=== PATIENT | female | born 1985 | race Caucasian/White ===

== ENCOUNTER 2020-03-19 12:39 | Emergency (ER) | payer BC, SELFPAY ==
[2020-03-19 12:46] VITALS: BP 145/98; PULSE 81; RESP 14; TEMP 36.7; O2SAT 100
--- NOTE | 2020-03-19 13:18 | ED.URI ---
HPI - URI/Sore Throat General Chief Complaint: Upper Respiratory Infection Stated Complaint: sore throat Time Seen by Provider: 03/19/20 12:59 Source: patient and RN notes reviewed Mode of arrival: ambulatory Limitations: no limitations History of Present Illness HPI Narrative: Patient presents today complaining of a sore throat since this morning and states she feels that her throat is swollen. Denies cough, ear pain, headache, fever, congestion or rhinorrhea, shortness of breath, or difficulty swallowing. Currently rates her pain 3/10 and has tried no [id number] interventions prior to arrival. MD elicited complaint: sore throat Related Data Home Medications Medication Instructions Recorded Confirmed buspirone 10 mg PO DAILY 03/19/20 03/19/20 gabapentin 300 mg PO TID 03/19/20 03/19/20 glatiramer 40 mg SUBCUT EVERY OTHER DAY 03/19/20 03/19/20 hydrochlorothiazide 12.5 mg PO DAILY 03/19/20 03/19/20 omeprazole 40 mg PO DAILY 03/19/20 03/19/20 venlafaxine 75 mg PO DAILY 03/19/20 03/19/20 Allergies Allergy/AdvReac Type Severity Reaction Status Date / Time cyclobenzaprine Allergy Severe AIRWAY Verified 03/19/20 12:59 CLOSES OFF Review of Systems Review of Systems: Narrative: CONSTITUTIONAL: Denies body aches, fever, chills, or sweats. EYES: Denies visual changes, redness, or discharge. ENT: Denies rhinorrhea, congestion, or otalgia. +Sore throat CARDIOVASCULAR: Denies chest pain, palpitations, or edema. RESPIRATORY: Denies cough or dyspnea. GASTROINTESTINAL: Denies abdominal pain, nausea, vomiting, or diarrhea. GENITOURINARY: Denies dysuria or hematuria. SKIN: Denies rash, itching, or wounds. MUSCULOSKELETAL: Denies back pain, joint pain, or myalgia. NEUROLOGIC: Denies headache, numbness, tingling, or weakness. PSYCH: Denies depression or anxiety. PMFSH Comments At time of signature, I have reviewed and agree with nursing past medical, surgical, social and family history unless otherwise noted. Please see nursing chart for further information. There is no relevant family history pertinent to the presenting complaint Exam Narrative: Exam Narrative: GENERAL: Well-appearing, well-nourished, and in no acute distress. HEAD: Normocephalic, atraumatic. EYES: EOMI. No redness or drainage. Conjunctivae normal. ENT: Mucous membranes pink and moist. Nares clear. No rhinorrhea. TMs normal bilaterally. Throat normal. Uvula midline. NECK: Normal AROM. Supple. No lymphadenopathy. CHEST: No respiratory distress. Clear to auscultation. HEART: Regular rate and rhythm. No murmur appreciated. Normal peripheral pulses. EXTREMITIES: Normal range of motion. No edema. SKIN: Warm, dry, no rash. Capillary refill normal. Normal skin turgor. NEURO: No focal deficits. Alert and oriented x3. Gait steady. PSYCH: Normal affect. No signs of depression or anxiety. Course Vital Signs Vital signs: Vital Signs Temperature 98.1 F 03/19/20 12:46 Pulse Rate 81 03/19/20 12:46 Respiratory Rate 14 03/19/20 12:46 Blood Pressure 145/98 H 03/19/20 12:46 Pulse Oximetry 100 03/19/20 12:46 Temperature 98.1 F 03/19/20 12:46 Pulse Rate 81 03/19/20 12:46 Respiratory Rate 14 03/19/20 12:46 Blood Pressure 145/98 H 03/19/20 12:46 Pulse Oximetry 100 03/19/20 12:46 Reviewed. Pt has been instructed to follow up with her PCP regarding her elevated blood pressure today. MDM - URI/Sore Throat Differential Diagnosis Differential diagnosis: Likely upper respiratory infection, viral infection, pharyngitis and other (Strep throat) Lab Data Attestation: I reviewed the patient's lab results. Labs: Strep Screen Presumptive Negative *(Reference Range: Negative)* Critical Care Time Critical Care Time Critical Care Time: No Discharge Plan Discharge Clinical Impression: Acute sore throat Patient Disposition: Home, Self-Care Condition: Stable Instructions: Strep Throat in C
== END 2020-03-19 13:24 | disposition home or self-care (01) ==
PROVIDERS: Emergency Provider Nurse Practitioner; PCP Nurse Practitioner Family
DX: J02.9 Acute pharyngitis, unspecified (principal); G35 Multiple sclerosis; I10 Essential (primary) hypertension; K21.9 Gastro-esophageal reflux disease without esophagitis; F41.9 Anxiety disorder, unspecified; F32.9 Major depressive disorder, single episode, unspecified
CPT/HCPCS: 87081; 87880; 99203; G0463

== ENCOUNTER 2022-01-23 09:53 | Emergency (ER) | payer BC, SELFPAY ==
[2022-01-23 09:58] VITALS: BP 140/86; PULSE 72; RESP 18; TEMP 36.5; O2SAT 100
--- NOTE | 2022-01-23 10:03 | ED.URI ---
HPI - URI/Sore Throat General Chief Complaint: Upper Respiratory Infection Stated Complaint: Drainage, stuffy, ear pain Time Seen by Provider: 01/23/22 10:00 Source: patient and RN notes reviewed History of Present Illness HPI Narrative: Patient is a 36-year-old female who presents the urgent care with complaints of nasal congestion, left ear pain, drainage and productive cough. Patient states that started last and she feels very fatigued and drained. Patient has a history of MS and is switching her medications and therefore has a decreased immune system until her new infusion starts at the end of this month. Patient states she has been using Zyrtec and Mucinex. 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 Patient denies any fever, nausea or vomiting. No other acute complaints. No acute distress noted. Patient aware of the plan of care. Some parts of this dictation were generated by voice recognition software and may contain typographical and/or grammatical inaccuracies. Related Data Home Medications Medication Instructions Recorded Confirmed buspirone 10 mg tablet 10 mg PO DAILY 03/19/20 01/23/22 gabapentin 300 mg capsule 300 mg PO TID 03/19/20 01/23/22 glatiramer 40 mg/mL subcutaneous 40 mg subcut EVERY OTHER DAY 03/19/20 01/23/22 syringe hydrochlorothiazide 12.5 mg tablet 12.5 mg PO DAILY 03/19/20 01/23/22 omeprazole 40 mg capsule,delayed 40 mg PO DAILY 03/19/20 01/23/22 release venlafaxine 75 mg tablet,extended 75 mg PO DAILY 03/19/20 01/23/22 release 24 hr ropinirole 1 mg tablet 1 mg DAILY 01/23/22 01/23/22 Allergies Allergy/AdvReac Type Severity Reaction Status Date / Time cyclobenzaprine Allergy Severe AIRWAY Verified 01/23/22 10:06 CLOSES OFF Review of Systems Review of Systems: CONSTITUTIONAL: Denies fever, chills, or sweats. EYES: Denies visual changes, redness, or discharge. ENT: Reports of postnasal drainage, sinus congestion, rhinorrhea and left otalgia CARDIOVASCULAR: Denies chest pain, palpitations, or edema. RESPIRATORY: Reports a productive cough without dyspnea GASTROINTESTINAL: Denies abdominal pain, nausea, vomiting, or diarrhea. GENITOURINARY: Denies dysuria or hematuria. SKIN: Denies rash or itching. MUSCULOSKELETAL: Denies back pain, joint pain, or myalgia. NEUROLOGIC: Denies headache, numbness, or weakness. All other systems reviewed are negative, except as documented in HPI. PMFSH Comments At the time of my signature, I reviewed and agree with the nursing past medical, surgical, social, and family history. There is no relevant family history pertinent to the patient complaint. Exam Narrative: GENERAL: This is a well-nourished, well-developed patient, in no apparent distress. HEAD: normocephalic, atraumatic. EYES: PERRL. Sclera clear/white. Moderate injected bilateral conjunctiva with clear drainage vision is grossly intact. EARS: External ears normal, auditory canals clear and without drainage, mild bilateral station tube dysfunction, TMs normal without perforation. Hearing grossly intact. NOSE: External nose normal with no obvious nasal discharge, bilateral erythemic nares with mild edema and clear yellow rhinorrhea THROAT: Mucous membranes moist, mild erythema noted posterior pharynx with moderate postnasal drainage NECK: Neck supple, non-tender without lymphadenopathy CARDIOVASCULAR: Regular rate and rhythm without murmurs, gallops, or rubs. RESPIRATORY: Clear to auscultation. Breath sounds equal bilaterally. No wheezes, rales, or rhonchi. SKIN: warm, intact with no suspicious lesions or rash, good texture and turgor. NEURO: awake, alert, and oriented to person, place and time. There were no obvious focal neurologic abnormalities. EXTREMITIES: No clubbing, cyanosis, or edema. Course Course Level of Care: Express Care Visit Vital Signs Vital signs: Vital Signs Temperature 97.7 F 01/23/22 09:58 Pulse Rate 72 0
== END 2022-01-23 10:18 | disposition home or self-care (01) ==
PROVIDERS: Emergency Provider Nurse Practitioner Family; PCP Nurse Practitioner Family
DX: J32.9 Chronic sinusitis, unspecified (principal); G35 Multiple sclerosis; I10 Essential (primary) hypertension; K21.9 Gastro-esophageal reflux disease without esophagitis; F41.9 Anxiety disorder, unspecified; F32.A Depression, unspecified; Z85.828 Personal history of other malignant neoplasm of skin
CPT/HCPCS: 99213; G0463

== ENCOUNTER 2023-04-27 16:27 | Emergency (ER) | payer BC, SELFPAY ==
[2023-04-27 16:32] VITALS: BP 160/90; PULSE 78; RESP 18; TEMP 36.6; O2SAT 99
--- NOTE | 2023-04-27 16:52 | ED.EYEPROB ---
HPI - Eye Problem General Chief complaint: Eye Problems Stated complaint: Eye Problem Time Seen by Provider: 04/27/23 16:35 Source: patient Mode of arrival: ambulatory Limitations: no limitations History of Present Illness HPI Narrative: 37 yo F presents with c/o redness, drainage, itching to L eye. Does wear contacts but took them out when symptoms started. No vision change. All systems reviewed and negative except as noted above. Related Data Home Medications Medication Instructions Recorded Confirmed buspirone 10 mg tablet 10 mg PO DAILY 03/19/20 04/27/23 gabapentin 300 mg capsule 300 mg PO TID 03/19/20 04/27/23 glatiramer 40 mg/mL subcutaneous 40 mg subcut EVERY OTHER DAY 03/19/20 04/27/23 syringe hydrochlorothiazide 12.5 mg tablet 12.5 mg PO DAILY 03/19/20 04/27/23 omeprazole 40 mg capsule,delayed 40 mg PO DAILY 03/19/20 04/27/23 release venlafaxine 75 mg tablet,extended 75 mg PO DAILY 03/19/20 04/27/23 release 24 hr ropinirole 1 mg tablet 1 mg PO DAILY 01/23/22 04/27/23 tizanidine 4 mg tablet 4 mg PO QID PRN Muscle Spasm 04/27/23 04/27/23 Allergies Allergy/AdvReac Type Severity Reaction Status Date / Time cyclobenzaprine Allergy Severe AIRWAY Verified 01/23/22 10:06 CLOSES OFF Review of Systems Review of Systems: CONSTITUTIONAL: Denies fever, chills, or sweats. EYES: Denies visual changes. Reports redness, discharge, itching left eye. ENT: Denies rhinorrhea, congestion, sore throat, or otalgia. CARDIOVASCULAR: Denies chest pain, palpitations, or edema. RESPIRATORY: Denies cough or dyspnea. GASTROINTESTINAL: Denies abdominal pain, nausea, vomiting, or diarrhea. GENITOURINARY: Denies dysuria or hematuria. SKIN: Denies rash or itching. MUSCULOSKELETAL: Denies back pain, joint pain, or myalgia. NEUROLOGIC: Denies headache, numbness, or weakness. PSYCHIATRIC: Denies anxiety or depression. All other systems reviewed are negative, except as documented in HPI. [facility] Comments At time of signature, agree with nursing past medical, surgical, social and family history. There is no relevant family history pertinent to the presenting complaint. Exam Narrative: GENERAL: This is a well-nourished, well-developed patient, in no apparent distress. HEAD: normocephalic, atraumatic. EYES: PERRL. Sclera and conjunctiva erythematous to left eye. Purulent drainage from left eye. Right eye is normal. Vision is grossly intact. EARS: External ears normal NOSE: External nose normal NECK: Neck supple, non-tender without lymphadenopathy, masses or thyromegaly. CARDIOVASCULAR: Regular rate and rhythm without murmurs, gallops, or rubs. RESPIRATORY: Clear to auscultation. Breath sounds equal bilaterally. No wheezes, rales, or rhonchi. SKIN: warm, Dry, intact with no suspicious lesions or rash, good texture and turgor. NEURO: awake, alert, and oriented to person, place and time. There were no obvious focal neurologic abnormalities. EXTREMITIES: No joint tenderness, effusion, or edema noted. Course Course Level of Care: Express Care Visit Vital Signs Vital signs: Vital Signs Temperature 36.6 C 04/27/23 16:32 Pulse Rate 78 04/27/23 16:32 Respiratory Rate 18 04/27/23 16:32 Blood Pressure 160/90 H 04/27/23 16:32 Pulse Oximetry 99 04/27/23 16:32 Oxygen Delivery Room Air 04/27/23 16:32 Temperature 36.6 C 04/27/23 16:32 Pulse Rate 78 04/27/23 16:32 Respiratory Rate 18 04/27/23 16:32 Blood Pressure 160/90 H 04/27/23 16:32 Pulse Oximetry 99 04/27/23 16:32 Oxygen Delivery Room Air 04/27/23 16:32 Reviewed MDM - Eye Problem MDM Narrative Medical decision making narrative: Patient is aware of diagnosis, understands and agrees to treatment plan. Anticipatory guidance given. Patient agrees to follow-up as directed and is aware of reasons to seek care at the emergency department. Portions of this record may have been created with voice recognition software D
== END 2023-04-27 16:53 | disposition home or self-care (01) ==
PROVIDERS: Emergency Provider Nurse Practitioner Family; PCP Nurse Practitioner Family
DX: H10.32 Unspecified acute conjunctivitis, left eye (principal); I10 Essential (primary) hypertension; G35 Multiple sclerosis; K21.9 Gastro-esophageal reflux disease without esophagitis; F41.9 Anxiety disorder, unspecified; F32.A Depression, unspecified; Z85.828 Personal history of other malignant neoplasm of skin
CPT/HCPCS: 99213; G0463

== ENCOUNTER 2024-01-04 11:35 | Emergency (ER) | payer BC, SELFPAY ==
--- NOTE | 2024-01-04 11:46 | ED.URI ---
HPI - URI/Sore Throat General Chief Complaint: Upper Respiratory Infection Stated Complaint: Left Ear Pain/Sore Throat/Sinus Pressure Time Seen by Provider: 01/04/24 11:46 Source: patient Mode of arrival: ambulatory Limitations: no limitations History of Present Illness HPI Narrative: 38-year-old female presents with complaint of nasal congestion, postnasal drainage, left ear pain, fatigue for 3-4 days. Taking [id number] Zyrtec with no relief of symptoms. Afebrile. All systems reviewed and negative except as noted above. Related Data Home Medications Medication Instructions Recorded Confirmed buspirone 10 mg tablet 10 mg PO DAILY 03/19/20 04/27/23 gabapentin 300 mg capsule 300 mg PO TID 03/19/20 04/27/23 glatiramer 40 mg/mL subcutaneous 40 mg subcut EVERY OTHER DAY 03/19/20 04/27/23 syringe hydrochlorothiazide 12.5 mg tablet 12.5 mg PO DAILY 03/19/20 04/27/23 omeprazole 40 mg capsule,delayed 40 mg PO DAILY 03/19/20 04/27/23 release venlafaxine 75 mg tablet,extended 75 mg PO DAILY 03/19/20 04/27/23 release 24 hr ropinirole 1 mg tablet 1 mg PO DAILY 01/23/22 04/27/23 tizanidine 4 mg tablet 4 mg PO QID PRN Muscle Spasm 04/27/23 04/27/23 trazodone 50 mg tablet mg 01/04/24 Allergies Allergy/AdvReac Type Severity Reaction Status Date / Time cyclobenzaprine Allergy Severe AIRWAY Verified 01/23/22 10:06 CLOSES OFF Review of Systems Review of Systems: CONSTITUTIONAL: Denies fever, chills, or sweats. Reports fatigue. EYES: Denies visual changes, redness, or discharge. ENT: Reports rhinorrhea, congestion, sore throat, left ear pain CARDIOVASCULAR: Denies chest pain, palpitations, or edema. RESPIRATORY: Denies cough or dyspnea. GASTROINTESTINAL: Denies abdominal pain, nausea, vomiting, or diarrhea. GENITOURINARY: Denies dysuria or hematuria. SKIN: Denies rash or itching. MUSCULOSKELETAL: Denies back pain, joint pain, or myalgia. NEUROLOGIC: Denies headache, numbness, or weakness. PSYCHIATRIC: Denies anxiety or depression. All other systems reviewed are negative, except as documented in HPI. PMFSH Comments At time of signature, agree with nursing past medical, surgical, social and family history. There is no relevant family history pertinent to the presenting complaint. Exam Narrative: GENERAL: This is a well-nourished, well-developed patient, in no apparent distress. HEAD: normocephalic, atraumatic. EYES: PERRL. Sclera clear/white. Vision is grossly intact. EARS: External ears normal, auditory canals clear and without drainage, fluid bilateral TMs with erythema without perforation bilaterally. Hearing grossly intact. NOSE: External nose normal moderate congestion, clear nasal drainage, erythema and swelling to bilateral nares. THROAT: Mucous membranes moist, erythema postnasal drainage NECK: Neck supple, non-tender without lymphadenopathy, masses or thyromegaly. CARDIOVASCULAR: Regular rate and rhythm without murmurs, gallops, or rubs. RESPIRATORY: Clear to auscultation. Breath sounds equal bilaterally. No wheezes, rales, or rhonchi. SKIN: warm, Dry, intact with no suspicious lesions or rash, good texture and turgor. NEURO: awake, alert, and oriented to person, place and time. There were no obvious focal neurologic abnormalities. EXTREMITIES: No joint tenderness, effusion, or edema noted. Course Course Level of Care: Express Care Visit Vital Signs Vital signs: Vital Signs Temperature 36.3 C L 01/04/24 11:47 Pulse Rate 84 01/04/24 11:47 Respiratory Rate 16 01/04/24 11:47 Blood Pressure 152/99 H 01/04/24 11:47 Pulse Oximetry 99 01/04/24 11:47 Oxygen Delivery Room Air 01/04/24 11:47 Temperature 36.3 C L 01/04/24 11:47 Pulse Rate 84 01/04/24 11:47 Respiratory Rate 16 01/04/24 11:47 Blood Pressure 152/99 H 01/04/24 11:47 Pulse Oximetry 99 01/04/24 11:47 Oxygen Delivery Room Air 01/04/24 11:47 Reviewed MDM - URI/Sore Throat MDM Narrative Med
[2024-01-04 11:47] VITALS: BP 152/99; PULSE 84; RESP 16; TEMP 36.3; O2SAT 99
== END 2024-01-04 12:00 | disposition home or self-care (01) ==
PROVIDERS: Emergency Provider Nurse Practitioner Family
DX: J01.00 Acute maxillary sinusitis, unspecified (principal); H65.03 Acute serous otitis media, bilateral
CPT/HCPCS: 99213; G0463

== ENCOUNTER 2024-03-12 08:44 | Emergency (ER) | payer BC, SELFPAY ==
[2024-03-12 08:48] VITALS: BP 141/81; PULSE 93; RESP 16; TEMP 36.9; O2SAT 100
--- NOTE | 2024-03-12 09:38 | ED.URI ---
HPI - URI/Sore Throat General Chief Complaint: Upper Respiratory Infection Stated Complaint: cough/sob/nose Time Seen by Provider: 03/12/24 09:38 Source: patient, RN notes reviewed and old records reviewed Mode of arrival: ambulatory Limitations: no limitations History of Present Illness HPI Narrative: 38-year-old female to Express Care for complaint of cough, nasal congestion, thick green nasal discharge, low-grade fever. Bilateral ear fullness for 3 days. Patient reports that her daughter is sick currently being treated with antibiotics. Patient states she has attempted to treat at home with Zyrtec and albuterol with little relief. Patient denies chest pain, shortness breath, sore throat, GI complaints. Patient able tolerate fluids by mouth. Patient resting comfortably in exam room, appears tired and acutely ill. Respirations even and nonlabored. Patient in no acute distress. Patient reports she took negative COVID test at home Related Data Home Medications Medication Instructions Recorded Confirmed gabapentin 300 mg capsule 300 mg PO TID 03/19/20 04/27/23 hydrochlorothiazide 12.5 mg tablet 12.5 mg PO DAILY 03/19/20 04/27/23 omeprazole 40 mg capsule,delayed 40 mg PO DAILY 03/19/20 04/27/23 release venlafaxine 75 mg tablet,extended 75 mg PO DAILY 03/19/20 04/27/23 release 24 hr ropinirole 1 mg tablet 1 mg PO DAILY 01/23/22 04/27/23 tizanidine 4 mg tablet 4 mg PO QID PRN Muscle Spasm 04/27/23 04/27/23 trazodone 50 mg tablet mg 01/04/24 cholecalciferol (vitamin D3) 50 50 mcg PO DAILY 03/12/24 03/12/24 mcg (2,000 unit) tablet vitamin B complex-vitamin B12 drp sublingual 03/12/24 1,200 mcg/mL sublingual drops Allergies Allergy/AdvReac Type Severity Reaction Status Date / Time cyclobenzaprine Allergy Severe AIRWAY Verified 03/12/24 09:26 CLOSES OFF Review of Systems Review of Systems: All systems reviewed & are unremarkable except as noted in HPI and below Constitutional: Constitutional: Reports fever(s) Eyes: Eyes: Reports no additional eye complaints ENT: Reports as per HPI, Reports nasal congestion, Reports nasal discharge ( Thick, green) and Reports post nasal drip Cardiovascular: Cardiovascular: Reports no additional cardiovascular complaints, Denies chest pain and Denies dyspnea Respiratory: Respiratory: Reports no additional respiratory complaints, Reports cough, Denies dyspnea and Reports wheezing Musculoskeletal: Musculoskeletal: Reports no additional musculoskeletal complaints Neurologic: Reports system reviewed and no additional complaints, except as documented Psychiatric: Psychiatric: Reports no additional psychiatric complaints PMFSH Comments At the time of my signature, I reviewed and agree with the nursing past medical, surgical, social, and family history. There is no relevant family history pertinent to the patient complaint. Exam Const: General: cooperative, no acute distress, alert, ill appearing acutely, tired appearing, uncomfortable and well nourished Nutritional Appearance: well nourished Orientation/consciousness: patient oriented x3 Limitations: no limitations HENMT: Head: normal to inspection Ears: external ears normal and TM abnormal with fluid behind the TM localized Face/Nose/Sinus: Normal external nose present, Abnormal mucous membranes and turbinates present boggy and erythematous, normal facial exam, No erythema and No edema Face and sinus: normal facial exam, no erythema and no edema Mouth: Yes Normal oral and palatal mucosa present Throat: postnasal drainage Eyes: General: appearance normal, both eyes and all related structures Neck: Neck: normal visual inspection, full ROM and no meningeal signs Lymphatic: no lymphadenopathy noted and no lymphedema noted Chest: Chest palpation & inspection: normal inspection of the chest Resp: Effort & Inspection: normal respiratory effort, able to speak in complete sentences and Actively coughing actively coughing
== END 2024-03-12 10:20 | disposition home or self-care (01) ==
PROVIDERS: Emergency Provider Nurse Practitioner Family
DX: J32.9 Chronic sinusitis, unspecified (principal); G35 Multiple sclerosis; I10 Essential (primary) hypertension; K21.9 Gastro-esophageal reflux disease without esophagitis; F41.9 Anxiety disorder, unspecified; F32.A Depression, unspecified; Z85.828 Personal history of other malignant neoplasm of skin
CPT/HCPCS: 99213; G0463

== ENCOUNTER 2024-07-22 12:30 | Emergency (ER) | payer OTHER, BC, SELFPAY ==
--- NOTE | ~2024-07-22 | XR_ITS ---
EXAMINATION: XR knee LT min 4V DATE: 07/22/2024 13:03 INDICATION: Left knee pain. Fall. TECHNIQUE: 4 views of left knee were obtained. COMPARISON: None. FINDINGS: Alignment is normal. No fracture. There is mild osteoarthritis of patellofemoral compartmen t. No knee joint effusion. IMPRESSION: 1. Mild left knee osteoarthritis. Reviewed, dictated and finalized at location A. HEMICAL MANAGER
--- NOTE | 2024-07-22 12:38 | ED_ITS ---
HPI - Extremity Injury (Lower) General Chief Complaint: Extremity Injury, Lower Stated Complaint: Injured Left Knee Time Seen by Provider: 07/22/24 13:18 Source: patient and RN notes reviewed Mode of arrival: ambulatory Limitations: no limitations History of Present Illness HPI Narrative: 38-year-old female presents with concern for left knee injury. She reports just prior to arrival she was at work when she tripped a patient's wheelchair and landed on the concrete directly onto her knee. She reports anterior knee pain radiating down the mid leg. She reports pain at rest and pain with flexion, extension, weight-bearing. MD complaint: knee injury Related Data Home Medications ?Medication ?Instructions ?Recorded ?Confirmed ?Last Taken ?Type gabapentin 300 mg capsule 300 mg PO TID 03/19/20 03/12/24 Unknown History hydrochlorothiazide 12.5 mg tablet 12.5 mg PO DAILY 03/19/20 03/12/24 Unknown History omeprazole 40 mg capsule,delayed 40 mg PO DAILY 03/19/20 03/12/24 Unknown History release venlafaxine 75 mg tablet,extended 75 mg PO DAILY 03/19/20 03/12/24 Unknown History release 24 hr ropinirole 1 mg tablet 1 mg PO DAILY 01/23/22 03/12/24 Unknown History tizanidine 4 mg tablet 4 mg PO QID PRN Muscle Spasm 04/27/23 03/12/24 Unknown History trazodone 50 mg tablet 50 mg PO DAILY 01/04/24 03/12/24 Unknown History cholecalciferol (vitamin D3) 50 50 mcg PO DAILY 03/12/24 03/12/24 Unknown History mcg (2,000 unit) tablet ocrelizumab 30 mg/mL intravenous 600 mg IV [id number] 03/12/24 03/12/24 Unknown History solution (Ocrevus) vitamin B complex-vitamin B12 1 drp sublingual DAILY 03/12/24 03/12/24 Unknown History 1,200 mcg/mL sublingual drops alprazolam 0.5 mg tablet mg 07/22/24 Unknown History losartan 100 mg tablet mg 07/22/24 Unknown History ropinirole 3 mg tablet mg 07/22/24 Unknown History venlafaxine 150 mg mg PO 07/22/24 Unknown History capsule,extended release 24 hr Allergies Allergy/AdvReac Type Severity Reaction Status Date / Time cyclobenzaprine Allergy Severe AIRWAY Verified 07/22/24 12:44 CLOSES OFF Review of Systems Review of Systems: CONSTITUTIONAL: Denies malaise, chills, sweats, or fever. SKIN: Denies rash or itching, open skin, laceration, abrasion, redness, warmth, swelling. MUSCULOSKELETAL: Reports left knee pain NEUROLOGIC: Denies numbness, weakness All systems reviewed & are unremarkable except as noted in HPI and below PMFSH Comments At time of signature, agree with nursing past medical, surgical, social and family history. There is no relevant family history pertinent to the presenting complaint Exam Narrative: GENERAL: Well-appearing, well-nourished, and in no acute distress. HEAD: Normocephalic, atraumatic. EYES: PERRLA, conjunctivae clear NECK: Supple. CHEST: Speaks in full sentences. No respiratory distress. HEART: Regular rate and rhythm. Normal and equal peripheral pulses. EXTREMITIES: Left knee has grossly normal strength and sensation, limited normal range of motion, likely due to pain Normal sensation with sensitivity to light touch and pain. Tenderness below the patella. Skin warm, dry, pink. SKIN: Warm, dry, no rash. NEURO: Alert and oriented x3. PSYCH: Normal mood and affect Course Course Emergency Course: Patient is aware of diagnosis, understands and agrees to treatment plan. Anticipatory guidance given. Patient agrees to follow-up as directed and is aware of reasons to seek care at the emergency department. Portions of this record may have been created with voice recognition software Level of Care: Express Care Visit Vital Signs Vital signs: Reviewed. MDM - Extremity Injury (Lower) MDM Narrative Medical decision making narrative: Patients injury and pain is consistent with musculoskeletal etiology. No signs of neurological or vascular compromise on exam. Compartments and tissues are soft without signs of compartment syndrome. Pain is felt appropriate for further evaluation on an outpatient basis. Imaging Data My impression: Images reviewed, interpreted by radiologist, agree, see report. Radiologist's impression: EXAMINATION: XR knee LT min 4V DATE: 07/22/2024 13:03 INDICATION: Left knee pain. Fall. TECHNIQUE: 4 views of left knee were obtained. COMPARISON: None. FINDINGS: Alignment is normal. No fracture. There is mild osteoarthritis of patellofemoral compartment. No knee joint effusion. IMPRESSION: 1. Mild left knee osteoarthritis. Critical Care Time Critical Care Time Critical Care Time: No Discharge Plan Discharge Clinical Impression: Injury of knee, left Patient Disposition: Home, Self-Care Condition: Stable Instructions: Knee Sprain (ED) Additional Instructions: Avoid activities that cause pain until the pain subsides. Ice to the area 20-30 minutes 4-6 times a day Elevate above heart Elastic wrap as directed for comfort for the next 5-7 days Tylenol for lesser pain Ibuprofen regularly for the next 2-3 days for the inflammation Follow up with your primary care provider if the condition is not improving within 1 week. If the condition worsens with numbness, tingling, decrease sensation with weakness seek treatment in the emergency room immediately. Patient Language: Latvian Prescriptions: No Action omeprazole 40 mg Capsule,Delayed Release(Dr/Ec) 40 mg PO DAILY venlafaxine 75 mg Tablet Extended Release 24hr 75 mg PO DAILY gabapentin 300 mg Capsule 300 mg PO TID hydrochlorothiazide 12.5 mg Tablet 12.5 mg PO DAILY ropinirole 1 mg tablet 1 mg PO DAILY trazodone 50 mg tablet 50 mg PO DAILY tizanidine 4 mg tablet 4 mg PO QID PRN (Reason: Muscle Spasm) cholecalciferol (vitamin D3) 50 mcg (2,000 unit) Tablet 50 mcg PO DAILY vitamin B complex-vit B12 1,200 mcg/mL Drops 1 drp SUBLINGUAL DAILY amoxicillin 875 mg tablet 875 mg PO Q12H Qty: 20 0RF Ocrevus 30 mg/mL Solution 600 mg IV [id number] Follow-up/Referrals: Enzo Allen MD [Physician] - PHYSICIAN,TECHNICAL ACCOUNT EXECUTIVE [Primary Care Provider] - Stand Alone Forms: Work/School Release IP Time of Disposition: 13:27
[2024-07-22 12:39] VITALS: BP 128/84; PULSE 80; RESP 16; TEMP 36.6; O2SAT 100
== END 2024-07-22 13:29 | disposition home or self-care (01) ==
PROVIDERS: Emergency Provider Nurse Practitioner
DX: S89.92XA Unspecified injury of left lower leg, initial encounter (principal); W18.09XA Striking against other object with subsequent fall, initial encounter; Y99.0 Civilian activity done for income or pay; M17.12 Unilateral primary osteoarthritis, left knee; G35 Multiple sclerosis; I10 Essential (primary) hypertension; K21.9 Gastro-esophageal reflux disease without esophagitis; F41.9 Anxiety disorder, unspecified; F32.A Depression, unspecified; Z85.828 Personal history of other malignant neoplasm of skin
CPT/HCPCS: 73564; 99213; G0463

== ENCOUNTER 2024-12-07 12:53 | Emergency (ER) | payer BC, SELFPAY ==
--- NOTE | 2024-12-07 12:55 | ED.EAR ---
HPI - Ear Problem General Chief complaint: Ear Stated complaint: Ear Pain Time Seen by Provider: 12/07/24 12:54 Source: patient Mode of arrival: ambulatory Limitations: no limitations History of Present Illness HPI Narrative: Christy is a 39-year-old female patient presenting to the clinic today with complaints of left ear pain times 2-3 days. She reports that she has history of some eczema/psoriasis to the external ears. States she took a hard piece of plastic in scratched on the inside of her ears. Now she developed ear pain. No discharge. Related Data Home Medications ?Medication ?Instructions ?Recorded ?Confirmed ?Last Taken ?Type gabapentin 300 mg capsule 300 mg PO TID 03/19/20 03/12/24 Unknown History hydrochlorothiazide 12.5 mg tablet 12.5 mg PO DAILY 03/19/20 03/12/24 Unknown History omeprazole 40 mg capsule,delayed 40 mg PO DAILY 03/19/20 03/12/24 Unknown History release venlafaxine 75 mg tablet,extended 75 mg PO DAILY 03/19/20 03/12/24 Unknown History release 24 hr ropinirole 1 mg tablet 1 mg PO DAILY 01/23/22 03/12/24 Unknown History tizanidine 4 mg tablet 4 mg PO QID PRN Muscle Spasm 04/27/23 03/12/24 Unknown History trazodone 50 mg tablet 50 mg PO DAILY 01/04/24 03/12/24 Unknown History cholecalciferol (vitamin D3) 50 50 mcg PO DAILY 03/12/24 03/12/24 Unknown History mcg (2,000 unit) tablet ocrelizumab 30 mg/mL intravenous 600 mg IV [id number] 03/12/24 03/12/24 Unknown History solution (Ocrevus) vitamin B complex-vitamin B12 1 drp sublingual DAILY 03/12/24 03/12/24 Unknown History 1,200 mcg/mL sublingual drops alprazolam 0.5 mg tablet mg 07/22/24 Unknown History losartan 100 mg tablet mg 07/22/24 Unknown History ropinirole 3 mg tablet mg 07/22/24 Unknown History venlafaxine 150 mg mg PO 07/22/24 Unknown History capsule,extended release 24 hr Allergies Allergy/AdvReac Type Severity Reaction Status Date / Time cyclobenzaprine Allergy Severe AIRWAY Verified 12/07/24 13:02 CLOSES OFF Review of Systems Review of Systems: Pertinent positives per HPI. Patient denies any fever, chills, rash, headache, visual changes, dizziness, cough, shortness of breath, chest pain, palpitations, nausea, vomiting, diarrhea, constipation, abdominal pain, or any urinary issues. PMFSH Comments At the time of my signature, I reviewed and agree with the nursing past medical, surgical, social, and family history. There is no relevant family history pertinent to the patient complaint. Exam Narrative: General: Well-developed, morbidly obese, in no apparent distress Head: Normocephalic, atraumatic Eyes: Pupils equally round and reactive to light bilaterally, EOM intact, sclera and conjunctive clear, no discharge, lids normal Ears: TMs intact and clear, left ear canal swollen and red without otorrhea, right ear canals clear, no drainage, grossly hearing normal. Tenderness to palpation over the left tragus and pulling of the left pinna Nose: Nares patent, no discharge, no inflammation, no sinus tenderness. Mouth: Oral pharynx without lesions or masses, good dentition, MMM. Neck: Supple, trachea midline, no enlargement of anterior or posterior cervical nodes, no thyroid masses or goiter palpable. Cardio: Regular rate and rhythm, s1 and s2 normal, no murmur appreciated. Resp: Clear to auscultation bilaterally, no rhonchi, rales, wheezing or rubs Course Course Emergency Course: Portions of this record may have been created with voice recognition software. Level of Care: Express Care Visit Vital Signs Vital signs: Vital Signs Temperature 36.9 C 12/07/24 13:00 Pulse Rate 80 12/07/24 13:00 Respiratory Rate 16 12/07/24 13:00 Blood Pressure 140/92 H 12/07/24 13:00 Pulse Oximetry 97 12/07/24 13:00 Temperature 36.9 C 12/07/24 13:00 Pulse Rate 80 12/07/24 13:00 Respiratory Rate 16 12/07/24 13:00 Blood Pressure 140/92 H 12/07/24 13:00 Pulse Oximetry 97 12/07/24 13:00 Vital signs reviewed Medical Decision Making MDM Narrative Medical decision making narrative: At the time of visit patient is resting comfortably on the exam table. Patient appears to be nontoxic. Plan: I suspect patient has left otitis externa. No sign for the TM. Prescription for Cipro dex was sent to the pharmacy. Supportive measures were discussed with the patient and they voiced understanding discharge instructions and agrees to treatment plan. Return precautions reviewed Differential Diagnosis Differential Diagnosis: Otitis media, otitis externa, eustachian tube dysfunction, cerumen impaction, upper respiratory infection, serous otitis Vital Signs Vital Signs: Vital Signs Temperature 36.9 C 12/07/24 13:00 Pulse Rate 80 12/07/24 13:00 Respiratory Rate 16 12/07/24 13:00 Blood Pressure 140/92 H 12/07/24 13:00 Pulse Oximetry 97 12/07/24 13:00 Temperature 36.9 C 12/07/24 13:00 Pulse Rate 80 12/07/24 13:00 Respiratory Rate 16 12/07/24 13:00 Blood Pressure 140/92 H 12/07/24 13:00 Pulse Oximetry 97 12/07/24 13:00 Discharge Plan Discharge Clinical Impression: Otitis externa Qualifiers: Otitis externa type: diffuse Chronicity: acute Laterality: left Qualified Code(s): H60.312 - Diffuse otitis externa, left ear Patient Disposition: Home Condition: Stable Instructions: Antibiotic Form, Swimmer's Ear (ED) Additional Instructions: Take any prescribed medications only as directed-Ciprodex Tylenol/motrin as needed for pain May use heating pad to alleviate pain If you get recurrent ear infections it may be warranted to follow up with ENT. Follow up with your PCP in 3-5 days if symptoms persist. Patient Language: Lithuanian Prescriptions: New ciprofloxacin-dexamethasone 0.3-0.1 % drops,suspension 4 drp EACH EAR Q12H 7 Days Qty: 7.5 0RF No Action omeprazole 40 mg Capsule,Delayed Release(Dr/Ec) 40 mg PO DAILY venlafaxine 75 mg Tablet Extended Release 24hr 75 mg PO DAILY gabapentin 300 mg Capsule 300 mg PO TID hydrochlorothiazide 12.5 mg Tablet 12.5 mg PO DAILY ropinirole 1 mg tablet 1 mg PO DAILY trazodone 50 mg tablet 50 mg PO DAILY tizanidine 4 mg tablet 4 mg PO QID PRN (Reason: Muscle Spasm) cholecalciferol (vitamin D3) 50 mcg (2,000 unit) Tablet 50 mcg PO DAILY vitamin B complex-vit B12 1,200 mcg/mL Drops 1 drp SUBLINGUAL DAILY Ocrevus 30 mg/mL Solution 600 mg IV [id number] ropinirole 3 mg tablet venlafaxine 150 mg capsule,extended release 24hr PO alprazolam 0.5 mg tablet losartan 100 mg tablet Follow-up/Referrals: Gennaro,MD Caridad [Primary Care Provider] - Time of Disposition: 13:06 Quality NIHSS Nursing Documentation ED NIHSS nursing documentation: reviewed/agree
[2024-12-07 13:00] VITALS: BP 140/92; PULSE 80; RESP 16; TEMP 36.9; O2SAT 97
== END 2024-12-07 13:08 | disposition home or self-care (01) ==
PROVIDERS: Emergency Provider Nurse Practitioner Family; PCP Family Medicine
DX: H60.312 Diffuse otitis externa, left ear (principal); G35 Multiple sclerosis; I10 Essential (primary) hypertension; K21.9 Gastro-esophageal reflux disease without esophagitis; F41.9 Anxiety disorder, unspecified; F32.A Depression, unspecified; Z85.828 Personal history of other malignant neoplasm of skin
CPT/HCPCS: 99213; G0463

== ENCOUNTER 2025-02-21 09:13 | Emergency (ER) | payer BC, SELFPAY ==
--- OUTSIDE RECORDS SUMMARY | 2012-06-07 04:30 | XMS_ITS | Continuity of Care Document ---
Author Organization [facility] Address [address] [place] [address] Phone Care Team Providers Care Stockkeeper Name Role Phone Buck Bush MD, FACS Unavailable Unavailab le Allergies, Adverse Reactions, Alerts Substance Reaction Status Criticality CYCLOBENZAPRINE HCL Active No Infor mation Medications Medication Instructions Dosage Effective Dates (start - stop) Status Comments Abril (28) 0.4 mg-35 mcg Tab take 1 tablet by ORAL route every day - Active Omeprazole 40 mg Cap, Delayed Release take 1 capsule (40MG) by ORAL route every day before a meal 40 MG - Active Bupropion HCl SR 150 mg Tab take 1 tablet (150MG) by ORAL route 2 times every day 150 MG - Active B COMPLEX WITH B-12 (unknown strength) Not Available - Active Vitamin D-3 2,000 unit Tab - Active Calcium 600 600 mg (1,500 mg) Tab - Active Baclofen 10 mg Tab take 1 tablet (10MG) by ORAL route 4 times every day 10 MG - Active Copaxone 20 mg Sub-Q Kit inject (20MG) by Subcutaneous route every day - Active SINGULAIR (unknown strength) Not Available - Active ZYRTEC (unknown strength) Not Available - Active Procedures Procedure Date Office/outpatient Visit, New Advance Directives Directive Yes / No Effective Date File Name Resuscitation Not Answered N/A N/A Life Support Not Answered N/A N/A Intubation Not Answered N/A N/A Antibiotics Not Answered N/A N/A IV Fluid Support Not Answered N/A N/A Tube Feed Not Answered N/A N/A Other Directive N/A N/A WARNING:The information contained in this section is historical and is provided for information only and does not constitute a legal document or any assurance that the information is still accurate. Please verify the information with the wakefield of the legal document before using it for clinical purposes. Encounters Encounter Description Practice Location Reason(s) For Visit Diagnoses Date Provider Providers Copied on Encounter Office/outpat ient Visit, [facility], [address], [place], [place], [id number], tel:[phone] [address] [place] Wilma Jonathanvishal CONJUNCTIVITIS NOS [address], [address], [place], [place], [address], . tel:[phone] Referring Provider: Buck Epps, [facility] [address], [place], [address] . tel:[phone] Family History Family Member Type Diagnosis Age At Onset No Information Payers Payer name Insurance type Covered republican ID Authoriza tiizabella(s) [facility] Commercial CI [id number] Social History Type Description Quantity Date Captured Comments Alcohol Use Details Caffeine Use Details Tobacco Use Status Smoking Status No Information Sex Female Chief Complaint And Reason For Visit No Information Reason For Referral Reason For Referral No Information History Of Present Illness Encounter Date Complaint History Of Prese nt Illness No Information Functional Status Date Functional Assessmen t No Information Instructions Date Instruction Additional Infor mation - PRN Related to CONJU NCTIVITIS NOS CONJUNCTIVITIS NOS, OS - will continue to monitor ? caused by FB, but no foreign bodys seen under EDWIGE - discussed dx with pt, [place] OS TID, sample and rx given. Rec warm ompress and massage. LASIK discussed Related to CONJUNCTIVITIS NOS Assessments Type Assessment Date No Information Patient Care Teams Name Effective Dates (start - stop) Status Members No Information
--- OUTSIDE RECORDS SUMMARY | 2012-06-07 04:30 | XMS_ITS | Continuity of Care Document ---
Author Organization [email or web address] Address [address] [place] [address] Phone Care Team Providers Care Snailer Name Role Phone Buck Bush MD, FACS [...] Providers Copied on Encounter Office/outpat ient Visit, [facility], [address], [place], [place], [id number], tel:[phone] [address] [place] Wilma Jonathanvishal CONJUNCTIVITIS NOS [address]. [address], [address], [place], [place], [address], . tel:[phone] Referring Provider: Buck Epps, [facility] [address], [place], [address] . tel:[phone] Family History Family Member Type Diagnosis Age At Onset No Information Payers Payer name Insurance type Covered constitution party ID Authoriza tiizabella(s) [facility] Commercial CI [id number] Social History Type Description Quantity Date Captured [...]
--- OUTSIDE RECORDS SUMMARY | 2025-02-21 09:16 | XMS_ITS | Clinical Summary ---
Author Organization [facility] Address [address] [place] [id number] Care Team Providers Care Trading Floor Operator Name Role Phone Paris Nasra Mich FERRELL, CASE AIDE Primary Care Provider Allergies Active Allergy Reactions Criticality Noted Date Comments Cyclobenzaprine Shortness of Breath 04/06/2019 Medications albuterol 108 (90 Base) MCG/ACT Aerosol Solution take 2 Puffs by inhalation. 0 Active busPIRone (BUSPAR) 10 MG Tablet 1 Active Cholecalciferol 25 mcg Capsule Take 1,000 Units by mouth. Active Cyanocobalamin (VITAMIN B-12) 1000 MCG Tablet 1,000 mcg. 1 Active gabapentin (NEURONTIN) 300 MG Capsule TAKE 1 CAPSULE BY MOUTH THREE TIMES DAILY 1 Active hydroCHLOROthiaz sirena 12.5 MG Tablet 1 Active omeprazole (PriLOSEC) 40 MG CAPSULE DELAYED RELEASE TAKE 1 CAPSULE(40 MG) BY MOUTH DAILY 1 Active venlafaxine (EFFEXOR-XR) 75 MG CAPSULE SR 24 HR TAKE 1 CAPSULE(75 MG) BY MOUTH DAILY WITH FOOD 1 Active tiZANidine (ZANAFLEX) 4 MG Tablet Take 1 Tablet by mouth every 6 hours as needed. 2 Active valACYclovir (VALTREX) 500 MG Tablet Take 1 Tablet by mouth 2 times daily as needed. 2 Active rOPINIRole (REQUIP) 3 MG Tablet TAKE 1 TO 2 TABLETS BY MOUTH EVERY NIGHT NEEDED FOR RESTLESS LEG SYNDROME 3 Active traZODone (DESYREL) 50 MG Tablet TAKE 1/2 TO 1 TABLET BY MOUTH EVERY NIGHT FOR SLEEP 3 Active predniSONE (DELTASONE) 10 MG Tablet 3 Active losartan (COZAAR) 100 MG Tablet 3 Active diazePAM (VALIUM) 10 MG Tablet Take 10 mg by mouth. Takes only for MRI 3 Active Drysol 20 % Solution APPLY TOPICALLY TO THE AFFECTED AREA EVERY NIGHT 3 Active albuterol (ProAir HFA) 108 (90 Base) MCG/ACT Aerosol SolutionIndicati ons:Acute bronchitis, unspecified organism take 2 Puffs by inhalation every 4 hours as needed for Wheezing or Cough. 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 - chronic condition, not at goal - worse - BMI Follow-up includes: nutrition counseling, exercise counseling and education Chronic midline low back pain without sciatica 0 01/27/2019 Overview (01/02/2023): Last Assessment & Plan: States from an old injury while playing soccer. On hydrocodone bid. I told her that I do not treat chronic pain. Will refer to pain management. Generalized anxiety disorder 11/08/2013 Demyelinating disease of central nervous system 10/26/2010 Overview (01/02/2023): Description: likely MS Immunizations Immunization Administration Dates Next Due Covid-19, Mrna, Lnp-s, Pf, 30 Mcg/0.3 Ml Dose (P fizer) 01/29/2021,01/08/2021 Social History Tobacco Use Types Packs/Day Years Used Date Smoking Tobacco: Former Cigarettes Q uit: 02/2022 Smokeless Tobacco: Never Tobacco Cessation:Counseling Given: Not Answered Alcohol Use Standard Drinks/Week Comments Yes 0 (1 standard drink = 0.6 oz pur e alcohol) occasionally Comments No Sex and Gender Information Value Date Recorded Sex Assigned at Not on file Legal Sex Female 12:02 AM CDT Gender Identity Not on file Sexual Orientation Not on file Last Filed Vital Signs Vital Sign Reading Time Taken Comments Blood Pressure 138/76 01/02/2023 9:39 AM CDT Pulse 111 01/02/2023 9:39 AM CDT Temperature 37.3 C (99.2 F) 01/02/2023 9:39 AM CDT Respiratory Rate 18 01/02/2023 9:39 AM CDT Oxygen Saturation 98% 01/02/2023 9:39 AM CDT Inhaled Oxygen Concentration - - Weight 104.3 kg (230 lb) 01/02/2023 9:39 AM CDT Height 162.6 cm (5' 4) 04/06/2019 12:08 AM CDT Body Mass Index 39.48 04/06/2019 12:08 AM CDT Plan of Treatment Health Maintenance Due Date Last Done Comments Hepatitis C Virus (HCV) Screening 1986 Pneumococcal Immunization Combined (1 of 2 - PCV) 2005 Pap Smear 11/21/2007 Human Papillomavirus (HPV) Immunization (1 - 3-dose SCDM series) 2013 Cervical Cancer Screening (CCS) 2016 HPV/Cotest 2016 SARS-COV-2 Immunization ( season) 2024 12/17/2021, 08/19/2021, 01/29/2021, Additional history exists Influenza Immunization (#1) 2025 Respiratory Syncytial Virus (RSV) Immunization (Adult) (1 - 1-dose 75+ series) 2061 Hepatitis B Immunization Completed 997, 06/10/1996, 05/05/1996 DTaP/Tdap/Td Immunization Discontinued 2016, 10/27/2009, 12/04/2000 TdaP Immunization Completed 08/08/2016, 10/27/2009 Meningococcal Immunization (ACWY) Aged Out No longer eligible based on patient's age to complete this topic Rotavirus Immunization Aged Out No lo nger eligible based on patient's age to complete this topic Insurance [facility] Care Teams Trading Floor Operator Relationship Specialty Start Date End Date Nasra Paris, SPOUT LINER HELPER, CASE AIDE [address] [facility] [place] [address] PCP - General Advanced Practice Nurse 04/06/19
--- OUTSIDE RECORDS SUMMARY | 2025-02-21 09:16 | XMS_ITS | Clinical Summary ---
Author Organization [facility] Address [address] [place] [address] Care Team Providers Care Legal Research Analyst Name Role Phone Derick Bergman MD PhD Unavailable [phone] Herman Ann MD Unavailable [phone] Linda Herndon MD, Andrew Talley Unavailable [phone] Lorrie Mace MD Unavailable [phone] Caridad Burdick MD Primary Care Provide r Miguel Ace [facility] Unavailable Unavaila Tanna Acosta RN Unavailable Unavailable Derick Bergman MD PhD Unavailable [phone] Sharif Bragg MD Unavailable [phone] Allergies Active Allergy Reactions Criticality Noted Date Comments Cyclobenzaprine Rash,Shortness of breath Reaction: rash, dyspnea, , , , Medications cyanocobalamin (vitamin B-12) 1,000 mcg tabletIndicatio ns:Prevention of Vitamin B12 Deficiency 1,000 mcg. 0 09/28/19 11 Active cholecalciferol (VITAMIN D-3) 1,000 unitIndications :Supplement. Take 1 tablet/capsule by mouth daily Active aluminum chloride (DRYSOL) 20 % external solutionIndicat ions:Hyperhidro sis Apply topically nightly 60 mL 1 10/24/19 23 Active Additional Information Patient not taking.Reported on 01/23/2025 hydrocortisone butyrate 0.1 % solution Apply to affected area twice a day for a week 60 mL 11/01/19 24 Active Additional Information Patient not taking.Reported on 01/23/2025 ocrelizumab (Ocrevus) 30 mg/mL solutionIndicat ions:primary progressive multiple sclerosis Infuse 20 mL into a venous catheter every 6 (six) months Active triamcinolone (KENALOG) 0.1 % lotion Apply topically 3 (three) times a day 60 mL 11/02/19 24 Active Additional Information Patient not taking.Reported on 01/23/2025 tiZANidine (ZANAFLEX) 4 mg tabletIndicatio ns:Muscle Spasm Take 1 tablet (4 mg total) by mouth every 6 (six) hours as needed for muscle spasms 120 tablet 5 05/16/20 24 Active naloxone (NARCAN) 4 mg/actuation spray,non-aeros olIndications:r isk mitigation for opioid overdose Administer 1 spray into affected nostril(s) as needed for opioid reversal or respiratory depression Call 911. Administer a single spray in one nostril. Repeat every 3 minutes as needed if no or minimal response. 1 each 2 09/05/19 25 Active Additional Information Patient not taking.Reported on 01/23/2025 methylPREDNISol one sodium succinate (SOLU-medrol) 125 mg injectionIndica tions:infusion pre-medication Infuse 2 mL (125 mg total) into a venous catheter every 6 (six) months for 3 minutes at 40 mL/hr RN to give slow IV push over 1 - 2 minutes, 30 minutes prior to Ocrelizumab infusion. 09/30/19 25 026 Active Additional Information Patient not taking.Reported on 01/23/2025 hydroCHLOROthia zide 12.5 mg tabletIndicatio ns:Hypertension , essential,Essen tial hypertension TAKE 1 TABLET(12.5 MG) BY MOUTH DAILY 90 tablet 1 10/07/19 25 Active omeprazole (PriLOSEC) 40 mg capsuleIndicati ons:Gastroesoph ageal reflux disease, unspecified whether esophagitis present TAKE 1 CAPSULE(40 MG) BY MOUTH DAILY 90 capsule 1 11/04/19 25 Active losartan (COZAAR) 100 mg tabletIndicatio ns:hypertension TAKE 1 TABLET(100 MG) BY MOUTH DAILY 90 tablet 1 11/04/19 25 Active acetaminophen (TYLENOL) 325 mg tabletIndicatio ns:Multiple sclerosis (HCC) Take 2 tablets (650 mg total) by mouth every 6 (six) months Take 30 minutes prior to infusion 2 tablet 09/30/19 25 026 Active diphenhydrAMINE (BENADRYL) 25 mg capsuleIndicati ons:Multiple sclerosis (HCC) Take 2 tablet/capsule (50 mg total) by mouth every 6 (six) months Take 30 minutes prior to infusion 2 capsule 09/30/19 25 026 Active methylPREDNISol one sodium succinate (SOLU-medrol) 125 mg/2 mL recon solnIndications :Multiple sclerosis (HCC) Infuse 2 mL (125 mg total) IV every 6 (six) months for 3 minutes Give 30 minutes prior to infusion 2 mL 09/30/19 25 026 Active 0.9 % sodium chloride (sodium chloride 0.9%) infusionIndicat ions:Multiple sclerosis (HCC) Infuse 500 mL IV every 6 (six) months Add ocrelizumab as directed. Infuse with 0.2 micron filter via pole mounted pump Infuse at 40 ml/hr initially, and increase by 40 mL/hr every 30 minutes as tolerated. Max Rate 200 mL/hr. Rate 1: 40 mL/hr for 20 mL Rate 2: 80 mL/hr for 40 mL Rate 3: 120 mL/hr for 60 mL Rate 4: 160 mL/hr for 80 mL Rate 5: 200 mL/hr for 300 mL 500 mL 09/30/19 25 026 Active ocrelizumab (OCREVUS) 30 mg/mL solutionIndicat ions:Multiple sclerosis (HCC) Infuse 20 mL (600 mg total) IV every 6 (six) months Withdraw & discard 20 mL of sodium chloride 0.9% from 500 mL bag. Draw up 20 mL (600 mg) from the 2 vials & inject into sodium chloride 0.9% bag for a final volume of 500 mL. Infuse as written on NS bag. START INFUSION WITHIN 4 HOURS OF MIXING 20 mL 09/30/19 25 026 Active sodium chloride 0.9% flush syringeIndicati ons:Multiple sclerosis (HCC) Infuse 10 mL IV as needed for line care [id number] mL 09/30/19 25 026 Active rOPINIRole (REQUIP) 3 mg tabletIndicatio ns:Restless Legs Syndrome TAKE 2 TO 3 TABLETS BY MOUTH EVERY NIGHT NEEDED FOR RESTLESS LEG SYNDROME 75 tablet 5 11/26/19 25 Active gabapentin (NEURONTIN) 300 mg capsuleIndicati ons:Multiple sclerosis (HCC),Dysesthes ia of multiple sites TAKE 3 CAPSULES BY MOUTH EVERY NIGHT AT BEDTIME NEEDED 270 capsule 1 01/06/20 25 Active ALPRAZolam (XANAX) 0.5 mg tabletIndicatio ns:anxiety TAKE 1 TABLET(0.5 MG) BY MOUTH EVERY 8 HOURS NEEDED FOR ANXIETY 30 tablet 2 01/20/20 25 Active venlafaxine XR (EFFEXOR-XR) 150 mg 24 hr capsuleIndicati ons:major depressive disorder TAKE 1 CAPSULE(150 MG) BY MOUTH DAILY WITH BREAKFAST 30 capsule 2 02/04/20 25 Active venlafaxine XR (EFFEXOR-XR) 150 mg 24 hr capsuleIndicati ons:major depressive disorder TAKE 1 CAPSULE(150 MG) BY MOUTH DAILY WITH BREAKFAST 30 capsule 2 11/03/19 25 025 Discontinued Active Problems Problem Noted Date Diagnosed Date Gastroesophageal reflux disease 11/01/2023 Encounter for wellness examination 10/31/2023 Assessment & Plan (12/25/2024 10:24 AM CDT): Labs pending Pap smear: follows with ob F/u in 1 year for annual Assessment & Plan (05/20/2024 4:06 PM LOAN SERVICING SPECIALIST): Recent cbc and cmp reviewed Ordered lipid, hgb a1c, TSH w/ reflex to t4 F/u in 1 year for annual Assessment & Plan (11/05/2023 9:47 AM CDT): Recent cbc and cmp reviewed Ordered lipid, hgb a1c, TSH w/ reflex to t4 F/u in 1 year for annual Class 3 severe obesity due t o excess calories with serious comorbidity and body mass index (BMI) of 40.0 to 44.9 in adult 05/02/2023 Assessment & Plan (12/25/2024 10:24 AM CDT): Assessment & Plan (08/25/2024 3:31 PM LOAN SERVICING SPECIALIST): Chronic, She was counseled on the importance of maintaining a healthy weight and the risks of obesity. Weight loss recommended. Encourage 150min/ week of exercise Encourage 1500 calories in a day for weight loss Insurance wont cover weight loss injections unless she is prediabetic F/u in 3 months for monitoring Assessment & Plan (05/26/2024 5:36 AM LOAN SERVICING SPECIALIST): Chronic, worsening She was counseled on the importance of maintaining a healthy weight and the risks of obesity. Weight loss recommended. Encourage 150min/ week of exercise Encourage 1500 calories in a day for weight loss Start semaglutide, rx sent She understands the risk of the medication F/u in 3 months for monitoring Assessment & Plan (05/02/2023 8:45 AM LOAN SERVICING SPECIALIST): Interested in being referred to bariatric surgery. 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 --Continue routine dental and vision visits --Immunizations reviewed and offered recommend pneumovax 20, - -Routine labs/ screenings Labs are pending. Ordered today Chronic eczematous otitis externa of both ears 0 08/01/2021 Assessment & Plan (08/01/2021 3:54 PM LOAN SERVICING SPECIALIST): Avoid ear cleaning techniques Avoid water to ears Lotrisone cream to outer portion of ear canal of both ears twice daily for two weeks then as needed COVID-19 06/03/2020 Assessment & Plan (07/11/2024 11:51 AM LOAN SERVICING SPECIALIST): New concern She has taken paxlovid before and knows how to adjust her medications and she understands the risk and benefits Rx sent to pharmacy Work note given Recommend fluids, rest, humidification if needed. She was instructed to call back if symptoms do not improved in a week, or if worsening ones arise. Education provided. F/u prn High risk medication use 05/09/2019 Dysesthesia of multiple sites 05/09/2019 Abnormal MRI 01/27/2019 Vitamin D deficiency 01/27/2019 Assessment & Plan (10/29/2022 1:00 PM CDT): .will recheck vitamin D level Spasticity 01/27/2019 Mixed hyperlipidemia 01/27/2019 Assessment & Plan (12/25/2024 10:24 AM CDT): Lipid abnormalities are stable. Has been diet controlled. Lipid panel ordered Assessment & Plan (10/31/2023 4:51 PM CDT): Lipid abnormalities are stable. Has been diet controlled. Lipid panel ordered Assessment & Plan (05/02/2023 8:43 AM LOAN SERVICING SPECIALIST): Lipid abnormalities are stable. Pharmacotherapy is not order. Has been diet controlled. Lipids will be reassessed in 6 months. Assessment & Plan (10/29/2022 12:59 PM CDT): Lipid abnormalities are stable, reviewed previous lipid levels in [facility]. Pharmacotherapy as ordered. Order for lipid panel was given today to be obtained. Pt voiced understanding of lab drawn and continuation of current medication regimen. Assessment & Plan (07/20/2020 7:40 PM LOAN SERVICING SPECIALIST): Orders for labs. Pt will get done today. Has been diet controlled. Continue to monitor Assessment & Plan (01/27/2019 1:38 PM CDT): Last checked in 2014. Order for repeat lipid panel Hypertension, essential 01/27/2019 Assessment & Plan (12/25/2024 10:24 AM CDT): Bp in the office today BP Readings from Last 1 Encounters: 12/25/24 120/62 Continue current regimen of hctz 12.5mg daily losartan 100mg daily Recommend DASH diet, heart-healthy lifestyle, exercise. Discussed the risks of hypertension. Assessment & Plan (08/25/2024 3:31 PM LOAN SERVICING SPECIALIST): Bp in the office today BP Readings from Last 1 Encounters: 08/25/24 114/64 Continue current regimen of hctz 12.5mg daily losartan 100mg daily Recommend DASH diet, heart-healthy lifestyle, exercise. Discussed the risks of hypertension. F/u in 3 months Assessment & Plan (05/20/2024 4:02 PM LOAN SERVICING SPECIALIST): Bp in the office today BP Readings from Last 1 Encounters: 05/20/24 130/66 Continue current regimen of hctz 12.5mg daily losartan 100mg daily Recommend DASH diet, heart-healthy lifestyle, exercise. Discussed the risks of hypertension. F/u in 6 months Assessment & Plan (11/05/2023 9:46 AM CDT): Bp in the office today BP Readings from Last 1 Encounters: 11/01/23 118/84 Continue current regimen of hctz 12.5mg daily losartan 100mg daily Recommend DASH diet, heart-healthy lifestyle, exercise. Discussed the risks of hypertension. F/u in 6 months Assessment & Plan (05/02/2023 8:42 AM LOAN SERVICING SPECIALIST): Blood pressure is borderline today. I asked her to keep monitoring her blood pressure. At this time will keep medications the same. Continue losartan 100 mg and hydrochlorothiazide 12.5 mg. She will continue to work on weight loss. Assessment & Plan (10/29/2022 12:59 PM CDT): Stable/ Improved. Blood pressure is adequately controlled on current medication. We will not make any medication changes today. Will have her follow-up in 6 months for continued monitoring and management Assessment & Plan (01/08/2022 3:29 PM CDT): Stable/ Improved. Blood pressure is adequately controlled on current medication. We will not make any medication changes today. Will have her follow-up in 6 months for continued monitoring and management Reviewed labs from other providers in [facility] and they are up to date. Renewed medications. Assessment & Plan (07/20/2020 7:32 PM LOAN SERVICING SPECIALIST): Stable/ Improved. Blood pressure is adequately controlled on current medication. We will not make any medication changes today. Will have her follow-up in 6 months for continued monitoring and management Assessment & Plan (11/26/2019 2:43 PM CDT): Hypertension is improving with treatment. Continue current treatment regimen. Blood pressure will be reassessed 6 months. Assessment & Plan (01/27/2019 1:41 PM CDT): Currently controlled. Continue hydrochlorothiazide. Mixed anxiety and depressive disorder 05/30/2017 Assessment & Plan (05/02/2023 8:43 AM LOAN SERVICING SPECIALIST): This is managed by Psychiatry. Assessment & Plan (10/29/2022 1:04 PM CDT): Stable on current medication. Continue venlafaxine as ordered. May follow up in 6 months History of tobacco use 03/13/2017 Assessment & Plan (08/28/2022 1:44 PM LOAN SERVICING SPECIALIST): - quit smoking in February 2022 - continue with abstinence Assessment & Plan (02/04/2018 11:28 AM CDT): Quit Smoking https://smokefree.gov/ Nicotine replacement therapy (NRT) is the most commonly used family of quit smoking medications. NRT reduces withdrawal feelings by giving you a small controlled amount of nicotine?but none of the other dangerous chemicals found in cigarettes. This small amount of nicotine helps satisfy your craving for nicotine and reduces the urge to smoke. NRT can t do all the work. It can help with withdrawal and cravings. But it won t completely take away the urge to smoke. Even if you use NRT to help you stop smoking, quitting can still be hard. Combining NRT with other strategies can improve your chances of quitting and staying quit. To give yourself the best chance for success, explore other quit methods you can combine with medication. Also think about: Developing a quit plan. Using quit programs such as Smokefree[employer]T or calling a quitline. Using the [employer] for tips and inspiration to help you be smokefree. Prepare, Reduce creavings and Triggers, Reduce stress, Get Active, Eat Healthy Gum, Patches, Inhaler, lozenges, nasal spray or medications like Wellbutrin, Chantix Remind yourself of the rewards of quitting to help yourself stay on track: 20 minutes: heart rate, blood pressure drop 12 hours: carbon monoxide in blood stream drops to normal 2 weeks-3 months: circulation, lung function improve; heart attack risk begins to drop 1-9 months: cough less, breathe easier 1 year: risk of coronary heart disease cut in half 2-5 years: risk of cancer of mouth, throat, esophagus, bladder cut in half; stroke risk is reduced to that of a nonsmoker 10 years: half as likely to from lung cancer; risk of kidney or pancreatic cancer decreases 15 years: risk of coronary heart disease same as non-smoker s risk EXTRA MONEY Chantix gave her bad dreams Still encourage her to try again to quit especially with a 16 month old at home Assessment & Plan (03/13/2017 1:11 PM CDT): Discussed smoking cessation. Discussed current smoking status in relation to her current bronchitis. She is asking about a nicotine patch. Will call in for possibility insurance may help with cost. Chronic eczema 10/26/2015 Assessment & Plan (11/01/2023 4:46 PM CDT): Chronic Worsening Apply hydrocortisone solution to scalp as instructed F/u if no improvement Assessment & Plan (07/20/2020 7:38 PM LOAN SERVICING SPECIALIST): Could be due to change in body wash vs. Eczema flair. Started prednisone 20mg , 2 tablets x 5 days . Atopic rhinitis 11/08/2013 Overview (09/27/2016): ALLERGIC RHINITIS NOS Generalized anxiety disorder 11/08/2013 Multiple sclerosis 12/28/2010 Assessment & Plan (12/25/2024 10:24 AM CDT): Stable Continue following with Neurology Assessment & Plan (05/20/2024 4:03 PM LOAN SERVICING SPECIALIST): Stable Continue following with Neurology Demyelinating disease of central nervous system 10/26/2010 Overview (10/04/2017): Description: likely MS Resolved Problems Problem Noted Date Diagnosed Date Resolved Date Diabetes mellitus 12/24/2024 12/25/2024 Immunocompromised 05/12/2022 04/26/2023 Mild ankle sprain, right, sequela 01/08/2022 10/29/2022 Assessment & Plan (01/08/2022 3:28 PM CDT): Patient already established with orthopedics. Has already worn a boot after small fracture. Offered to obtain x-ray, but she is concerned x-ray will not show fracture as it did not last time. I reocmmended that she wear boot when she is not working (it inhibits work) and return to ortho for evaluation Closed avulsion fracture of right ankle 08/20/2021 10/29/2022 Impacted cerumen of right ear 08/01/2021 10/29/2022 Assessment & Plan (08/01/2021 10:15 PM LOAN SERVICING SPECIALIST): Avoid ear cleaning techniques Avoid water to ears Lotrisone cream to outer portion of ear canal of both ears twice daily for two weeks then as needed OME (otitis media with effusion), left 05/29/2021 10/29/2022 Assessment & Plan (05/29/2021 4:20 PM LOAN SERVICING SPECIALIST): Will try a round of antibiotics due to decreased hearing and fluid. I told her in hearing does not return, then we will refer her to audiology or ent. Cellulitis of left external ear 05/04/2021 10/29/2022 Assessment & Plan (05/04/2021 10:11 AM LOAN SERVICING SPECIALIST): Starting to improve on its own. Mild cellulitis. Will treat with mupirocin topically twice a day for 5-7 days. Class 2 drug-induced obesity with body mass index (BMI) of 39.0 to 39.9 in adult 05/04/202101/2023 Assessment & Plan (08/28/2022 1:42 PM LOAN SERVICING SPECIALIST): Wt Readings from Last 3 Encounters: 08/28/22 103.7 kg (228 lb 9.6 oz) 03/21/22 97.7 kg (215 lb 6.4 oz) 02/16/22 98.9 kg (218 lb) Body mass index is 39.22 kg/m . - chronic condition, not at goal - worse - BMI Follow-up includes: nutrition counseling, exercise counseling and education Assessment & Plan (05/04/2021 10:12 AM LOAN SERVICING SPECIALIST): Refer to risk engineer. Also gave Information on chip Vertigo 09/01/2020 10/29/2022 Assessment & Plan (09/01/2020 1:56 PM LOAN SERVICING SPECIALIST): With nausea. Differential includes viral syndrome like a gastroenteritis, but pt has been on 8mg tizanidine at bedtime daily and ran out 3 days ago because script isn't lasting her as long. I talked to her about possible side effects of abrupt cessation of tizanidine according to uptodate can cause Discontinuation of therapy: Gradually taper dose by 2 to 4 mg daily to reduce the risk of rebound symptoms (eg, hypertension, tachycardia, hypertonia), especially in patients receiving high doses (eg, >=20 mg/day) for long periods (eg, >=9 weeks) or in patients who have been receiving concomitant opioids. Pt is also on hydrocodone. I gave her #10 tizanidine 4mg to restart dose until her insurance will pick her refill back up, which I believe she said tomorrow. She also has zofran 8mg to take tid for nausea. Advised to rest today. She is able to drink fluids. I discussed drawing labs today, but we'll hold off and see how she is doing tomorrow. Acute non-recurrent frontal sinusitis 04/20/2020 07/20/2020 Assessment & Plan (04/20/2020 3:33 PM CDT): Will treat for acute sinusitis with Augmentin. May continue Sudafed. As needed. Encouraged rest fluids. Work note for off work for tomorrow. She should have her COVID test back by tomorrow morning. If she starts feeling better and symptoms improved and her COVID -19 test is negative she may return to work on . Chronic midline low back quirino n without sciatica 01/27/2019 04/26/2023 Assessment & Plan (01/27/2019 1:38 PM CDT): States from an old injury while playing soccer. On hydrocodone bid. I told her that I do not treat chronic pain. Will refer to pain management. Bronchitis 03/14/2018 01/27/2019 Assessment & Plan (03/14/2018 1:20 PM CDT): R/o pneumonia - obtain cbc, chest x-ray. Azithromycin. Prednisone. Continue albuterol nebulizer. Pain of left eye 02/04/2018 03/14/2018 Assessment & Plan (02/04/2018 11:37 AM CDT): Left eye red and itchy + watery discharge No ropy, mucoid discharge No purulent discharge itching predominant symptom Denies eyelids stuck together in morning Some red flags-pain, sensitive to light, and has some issues with blurred vision. Pt. Does have a hx of MS. She does wear contact lenses I recommend that patient see her eye doctor (Dr. Meyer) Could just be allergic conjunctivitis but pt. Does not seem to think it is allergies Can try cool compresses and artificial tears Try oral antihistamines are preferred because they are less sedating. These include fexofenadine, loratadine, and cetirizine. Use your eye drops or ointment as directed Practice good hand hygiene before and after administering medication Wash your hands if you touch your eye Do not touch the tip of the medication bottle to your eye Use artificial tears to help relieve itching or discomfort. Use Cool Compresses to help relieve itching or discomfort Do not wear contact lenses while being treated with eye medications. Throw away eye make up, do not share towels or other items that touch the eye May return to work/school after 24-48 hours after antibiotic treatment if bacterial if viral may require at least 5-7 days out of school/work. Notify the doctor or go to a senior accounting specialist like an Nurse Clinical or Opthalmologist if develop significant pain, light sensitivity or vision loss. Bronchitis 03/13/2017 11/26/2019 Assessment & Plan (06/03/2019 2:58 PM LOAN SERVICING SPECIALIST): Rapid flu swab in office was negative. Will will go ahead and treat with azithromycin and prednisone. Continue nebulizer treatments at home. Call if no improvement over the next week Assessment & Plan (03/13/2017 1:13 PM CDT): She has an inhaler at home - albuterol. Continue every 4-6 hours as needed for cough. May continue nebulizer as needed. Start levaquin 500mg daily x 10 days. cheratussin for cough. Basal cell carcinoma (BCC) of face 01/24/2017 03/14/2018 Keratosis, senilis 09/27/2016 8 Milia 05/02/2016 03/14/2018 , twins 02/02/2016 01/27/2019 Mixed anxiety depressive disorder 02/02/2016 03/14/2018 Loose stools 11/25/2015 03/13/2017 Overview (09/29/2016): Loose stools Folliculitis 10/26/2015 03/14/2018 Acute streptococcal pharyngitis 09/29/2015 03/13/2017 Overview (09/29/2016): Strep throat Acute maxillary sinusitis 04/20/2015 Overview (09/29/2016): Acute recurrent maxillary sinusitis History of basal cell carcinoma (BCC) 04/13/2015 10/23/2022 Basal cell carcinoma of face 10/02/2014 03/14/2018 Overview (09/29/2016): Basal cell cancer of face Basal cell carcinoma (BCC) of lower eyelid 07/29/2014 10/23/2022 Neoplasm of uncertain behavi or of skin of eyelid 06/15/2014 10/23/2022 Skin neoplasm 06/12/2014 01/27/2019 Seborrheic eczema 06/12/2014 10/23/2022 Skin tag 06/12/2014 03/14/2018 Fatigue 03/23/2014 03/14/2018 Skin benign neoplasm 04/21/2013 018 Epidermoid cyst 04/21/2013 03/14/2018 Asteatosis cutis 04/21/2013 10/23/2022 Encounters Date Type Department Care Team Description 02/19/2025 Telephone [facility] Medicine Neuro Sleep [address] [place] [address] Abdullahi Ozuna DO 02/13/2025 3:00 PM CDT Procedure visit [facility] Medicine Neuro Sleep [address] [place] [address] JACOB (obstructive sleep apnea) (Primary Dx); Multiple sclerosis (HCC); Witnessed apneic spells; Excessive daytime sleepiness; Restless leg syndrome 02/11/2025 [facility] [address] [place] [address] Miguel Ace, [facility] 01/23/2025 10:30 AM CDT Office Visit [facility] Medicine Neuro Sleep [address] [facility] 6th [address] [place] [address] Abdullahi Ozuna DO Witnessed apneic spells (Primary Dx); Multiple sclerosis (HCC); Excessive daytime sleepiness; Restless leg syndrome; JACOB (obstructive sleep apnea) 01/16/2025 Telephone [facility] Medicine Scheduling [address] [place] [address] Denise Liang 01/14/2025 10:17 PM CDT - 01/14/2025 10:41 PM CDT Emergency [facility] Emergency Department 1 [place] [address] Acute right ankle pain (Primary Dx); Closed nondisplaced fracture of lateral malleolus of right fibula, initial encounter Discharge Disposition: Discharge to home or self care 01/02/2025 Telephone [facility] Medicine Scheduling [address] [place] [address] Kell Liangna 12/25/2024 10:40 AM CDT Lab [facility] [address] [place], [place] Routine health maintenance 12/25/2024 10:00 AM CDT Office Visit [facility] Medical [facility] Primary Care at [address] [id number] Caridad Burdick MD Encounter for wellness examination (Primary Dx); Hypertension, essential; Mixed hyperlipidemia; Moderate episode of recurrent major depressive disorder (HCC); Multiple sclerosis (HCC); Class 3 severe obesity due to excess calories with serious comorbidity and body mass index (BMI) of 40.0 to 44.9 in adult 12/25/2024 Results Follow-Up [facility] Primary Care at [address] [id number] Caridad Burdick MD Hemoglobin A1c, Thyroid Function [place], Lipid panel, Additional followed-up results: 4 12/16/2024 9:45 AM CDT Telemedicine [facility] [address] [phone] Sharif Bragg MD Generalized anxiety disorder (Primary Dx); Moderate episode of recurrent major depressive disorder (HCC) 11/29/2024 Home Care Visit [place] [address] [place] [address] Yaritza Cosme RN SN DISCIPLINE DISCHARGE 11/25/2024 10:00 AM CDT Office Visit [facility] Multiple Sclerosis [address] [facility] 7th [place] [address] Derick Bergman MD PhD Multiple sclerosis (HCC) (Primary Dx); Long-term current use of high risk medication other than anticoagulant; Restless leg syndrome 11/16/2024 Plan of Care Documentation [facility] Home Infusion Therapy [address] [place] [address] from Last 3 Months Immunizations Immunization Administration Dates Next Due DT 12/04/2000 Hep B, Adolescent or Pediatric 11/11/1996,1995,05/05/1996 Influenza, Split 01/20/1989 Influenza, Trivalent, Preser vative Free, Intramuscular 04/26/2024 Influenza, Unspecified 07/11/2024(Deferr ed: Patient Refused),05/20/2024(Deferred: Patient Refused),04/13/2024(Deferred: Patient Refused),11/01/2023(Deferred: Patient Refused),04/13/2023(Deferred: Patient Refused),04/03/2023(Deferred: Patient Refused),10/23/2022(Deferred: Patient Refused),08/28/2022(Deferred: Patient Refused),01/23/2022(Deferred: Patient Refused),05/04/2021(Deferred: Patient Refused),04/01/2021(Deferred: Patient Refused),07/20/2020(Deferred: Patient Refused),04/20/2020(Deferred: Patient Refused),03/25/2020(Deferred: Patient Refused),03/25/2019(Deferred: Patient Refused),08/14/2018(Deferred: Patient ill today - ill @ [facility]),03/25/2018(Deferred: Patient Refused) MMR 12/17/1992,03/14/1988 OPV 01/22/1992, 9,06/12/1987,03/23,1986 Pfizer SARS-CoV-2 Monovalent Vaccination (12+ Yrs) PURPLE 08/19/2021 Pneumococcal Conjugate Pcv20 02/12/2024 Tdap 08/08/2016,10/27/2009 Surgical History Surgery Date Site/Laterality Comments OTHER SURGICAL HISTORY MSD dx 2011 SKIN CANCER EXCISION Right right cheek TUBAL LIGATION 05/25/2021 - 06/24/2021 Medical History Medical History Date Comments Cancer (HCC) skin cancer on f [place] MS (multiple sclerosis) Hypertension Anemia Anxiety Depression , twins 02/02/2016 Covid-19 06/03/2020 Asthma GERD (gastroesophageal reflux disease) Constipation History of basal cell carcinoma (BCC) 04/13/2015 Closed avulsion fracture of right ankle 2 Vertigo 09/01/2020 Family History Medical History Relation Name Comments Hypertension Brother Hypertension; Lung cancer Maternal Grandfather Blood Clot Maternal Grandmother COPD Maternal Grandmother Heart failure Maternal Grandmother Hypertension Mother Hypertension; Hypertension Other 1 Family history of Hypertension; Lung cancer Other 2 Cancer -lung; Kidney failure Paternal Grandfather Relation Name Status Comments Brother Maternal Grandfather Maternal Grandmother Mother Alive Other 1 Other 2 Paternal Grandfather Social History Tobacco Use Types Packs/Day Years Used Date Smoking Tobacco: Former Cigarettes 0.5 22.7 2 000 - 03/25/2022 Passive Smoke Exposure: Current Smokeless Tobacco: Never Tobacco Cessation:Counseling Given: Not Answered Comments:Smoking History Packs/day: 10 Cigarettes Alcohol Use Standard Drinks/Week Comments Not Currently 0 (1 standard drink = 0.6 oz pur e alcohol) OASIS [id number]: Social Isolation Answer Da te Recorded Frequency of experiencing loneliness or isolatio n Never 10/07/2024 AUDIT-C Answer Date Recorded Q1: How often do you have a drink containing alcohol? Never 11/01/2023 Q2: How many drinks containi ng alcohol do you have on a typical day when you are drinking? Patient does not drink Q3: How often do you have si x or more drinks on one occasion? Never 11/01/2023 PHQ-2 Answer Date Recorded PHQ-2 Total Score (If total score is 3 or more points, staff should administer the PHQ-9) 0 12/25/2024 Personal Safety Answer Date Recorded Have you ever been in or are you currently in a harmful physical or emotional relationship or is someone making you feel afraid or unsafe? 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 Gender Identity Not on file Sexual Orientation Not on file Obstetrics History Last Filed Vital Signs Vital Sign Reading Time Taken Comments Blood Pressure 138/85 01/23/2025 10:27 AM CDT Pulse 82 01/23/2025 10:27 AM CDT Temperature 36.6 C (97.9 F) 01/23/2025 10:27 AM CDT Respiratory Rate 16 01/14/2025 8:49 PM CDT Oxygen Saturation 96% 01/23/2025 10:27 AM CDT Inhaled Oxygen Concentration - - Weight 112 kg (247 lb) 01/23/2025 10:27 AM CDT Height 162.6 cm (5' 4) 01/23/2025 10:27 AM CDT Body Mass Index 42.4 01/23/2025 10:27 AM CDT Plan of Treatment Health Maintenance Due Date Last Done Comments HPV Vaccines (1 - 3-dose SCDM series) 2013 Cervical Cancer Screening 04/25/2022 04/25/2017 Influenza Vaccine (#1) 2025 04/26/2024, 1988 Zoster Vaccine (1 of 2) 08/22/2025 Post poned from 2005 (Patient declined, but will receive in the future) Covid-19 Vaccine ( season) 2025 12/17/2021, 08/19/2021, 01/29/2021, Additional history exists Postponed from 02/24/2024 (Patient declined, but will receive in the future) Depression Screening 12/25/2025 12/25/2024, 08/25/2024, 07/11/2024, Additional history exists Regular Well Visit/Exam 18-64 12/25/2025 12/25/2024, 11/01/2023, 10/23/2022 DTaP/Tdap/Td Vaccine (4 - Td or Tdap) 08/08/2026 08/08/2016, 10/27/2009, 12/04/2000 Hepatitis B Screening Completed 11/11/1996 , 06/10/1996, 05/05/1996 Hepatitis C Screening Completed 12/14/2021 Pneumococcal vaccine <65 Completed 02/12/2024 Varicella Vaccines Discontinued Procedures Procedure Name Priority Date/Time Associated Diagnosis Comments PORTABLE/HOME SLEEP STUDY Routine 02/13/2025 10:00 PM CDT Multiple sclerosis (HCC) Witnessed apneic spells Excessive daytime sleepiness Restless leg syndrome XR ANKLE RIGHT 3 OR MORE VIEWS ED 01/14/2025 9:12 PM CDT EGFR Routine 12/25/2024 10:42 AM CDT Routine health maintenance DIFFERENTIAL AUTO Routine 12/25/2024 10: 42 AM CDT Routine health maintenance CBC WITH AUTO DIFFERENTIAL Routine 12/25/2024 10:42 AM CDT Routine health maintenance COMPREHENSIVE METABOLIC PANEL Routine 12/25/2024 10:42 AM CDT Routine health maintenance LIPID PANEL Routine 12/25/2024 10:42 AM CDT Routine health maintenance THYROID FUNCTION CASCADE Routine 12/25/2024 10:42 AM CDT Routine health maintenance HEMOGLOBIN A1C Routine 12/25/2024 10:42 AM CDT Routine health maintenance HEPATITIS C ANTIBODY Routine 12/14/2021 3:51 PM CDT Multiple sclerosis (HCC) Medication monitoring encounter Abnormal MRI Vitamin D deficiency Mixed anxiety and depressive disorder Dysesthesia of multiple sites Spasticity Encounter for medication counseling Immunosuppression due to drug therapy HM PAP SMEAR WITH HPV Routine 04/25/2017 from Last 3 Months or Most Recently Relevant to Health Maintenance Results * PORTABLE/HOME SLEEP STUDY (02/13/2025 10:00 PM CDT) Narrative Wilner Narayanan MD - 02/13/2025 10:00 PM CDT Wilner Narayanan MD 02/20/2025 2:57 PM Portable/Home Sleep Study Date/Time: 02/13/2025 10:00 PM Performed by: Wilner Narayanan MD Authorized by: Abdullahi Ozuna DO Abdullahi Ozuna DO SLEEP CENTER ORDERAB LES Final Result * XR Ankle Right 3+ views (01/14/2025 9:12 PM CDT) Anatomical Region Laterality Modality Lower Extremities, Ankle Right Compute d Radiography 01/14/2025 9:29 PM CDT Narrative 01/14/2025 9:30 PM CDT EXAM DESCRIPTION: XR ANKLE RIGHT 3 OR MORE VIEWS REASON FOR STUDY: pain Patient complains of lateral right ankle pain after tripping in yard today. Hx of fracture to the right ankle. TECHNIQUE: There are 3 radiographic view(s) of the right ankle . COMPARISON: Prior exam 08/20/2021 FINDINGS: Normal mineralization. There is a subtle avulsion of the distal tip of the fibula where there is mild cortical irregularity. There is prominent lateral soft tissue swelling. No other fracture is seen. Talar dome is smooth. Ankle mortise is intact. Small plantar calcaneal spur. IMPRESSION: There is a subtle avulsion of the distal tip of the fibula with prominent lateral soft tissue swelling. THIS IS AN ELECTRONICALLY VERIFIED FINAL REPORT 01/14/2025 9:30 PM - Electronically signed by Renato Kumar M.D. MJ: SAL Report ID: [id number] Reading Location: [id number] Procedure Note Renato Kumar MD - 01/14/2025 EXAM DESCRIPTION: XR ANKLE RIGHT 3 OR MORE VIEWS REASON FOR STUDY: pain Patient complains of lateral right ankle pain after tripping in yardtoday. Hx of fracture to the right ankle. TECHNIQUE: There are 3 radiographic view(s) of the right ankle . COMPARISON: Prior exam 08/20/2021 FINDINGS: Normal mineralization. There is a subtle avulsion of the distal tip ofthe fibula where there is mild cortical irregularity. There is prominentlateral soft tissue swelling. No other fracture is seen. Talar dome is smooth. Ankle mortise isintact. Small plantar calcaneal spur. IMPRESSION: There is a subtle avulsion of the distal tip of the fibula with prominent lateral soft tissue swelling. THIS IS AN ELECTRONICALLY VERIFIED FINAL REPORT 01/14/2025 9:30 PM - Electronically signed by Renato Kumar M.D. MJ: SAL Report ID: [id number] Reading Location: [place] [address] us Remy Luciano MD IMG XR PROCEDURES Final Resu lt * eGFR (12/25/2024 10:42 AM CDT) eGFR >90 >=60 mL/min/1. 73 m2 Comment: Interpretive Data Reference Interval Normal >/= 90 mL/min/1.73m2 Mildly decreased* 60 - 89 mL/min/1.73m2 Mildly to moderately decreased 45 - 59 mL/min/1.73m2 Moderately to severely decreased 30 - 44 mL/min/1.73m2 Severely decreased 15 - 29 mL/min/1.73m2 Kidney Failure < 15 mL/min/1.73m2 *Relative to young adult level Estimated glomerular filtration rate is determined by the 2020 CKD-EPI equation recommended by the National Kidney Foundation (A Unifying Approach to GFR Estimation: Recommendations of the NKF-ASK Task Force on Reassessing the Inclusion of Race in Diagnosing Kidney Disease, JASN 2020). The CKD-EPI equation should not be used for patients with unstable renal function and has not been validated in children and those over 70. Current interpretive data was last reviewed 2021. Blood 12/25/2024 10:4 2 AM CDT 12/25/2024 1:45 PM CDT us Caridad Burdick MD LAB BLOOD ORDERABLES Final Result [facility] [place] 1 [facility] [place] [address] * Differential, auto (12/25/2024 10:42 AM CDT) Neutrophil abs 4.60 1.50 - 6.50 K/cumm Imm gran abs 0.02 0.00 - 0.10 K/cumm [facility] ([place]) Lymphocyte abs 1.76 0.80 - 3.30 K/cumm [facility] ([place]) Monocyte abs 0.34 0.20 - 0.80 K/cumm [facility] ([place]) Eosinophil abs 0.03 0.00 - 0.50 K/cumm [facility] ([place]) Basophil abs 0.03 0.00 - 0.10 K/cumm [facility] ([place]) Neutrophil pct 67.9 % [facility] ([place]) Comment: Interpretive Data Percent cell count reference ranges are not reported, since discordance with absolute values may lead to misinterpretation of CBC data. Current Interpretive Data was last revised on 2017. Imm gran pct 0.3 % [facility] ([place]) Comment: Interpretive Data Percent cell count reference ranges are not reported, since discordance with absolute values may lead to misinterpretation of CBC data. Current Interpretive Data was last revised on 2017. Lymphocyte pct 26.0 % [facility] ([place]) Comment: Interpretive Data Percent cell count reference ranges are not reported, since discordance with absolute values may lead to misinterpretation of CBC data. Current Interpretive Data was last revised on 2017. Monocyte pct 5.0 % [facility] ([place]) Comment: Interpretive Data Percent cell count reference ranges are not reported, since discordance with absolute values may lead to misinterpretation of CBC data. Current Interpretive Data was last revised on 2017. Eosinophil pct 0.4 % [facility] ([place]) Comment: Interpretive Data Percent cell count reference ranges are not reported, since discordance with absolute values may lead to misinterpretation of CBC data. Current Interpretive Data was last revised on 2017. Basophil pct 0.4 % [facility] ([place]) Comment: Interpretive Data Percent cell count reference ranges are not reported, since discordance with absolute values may lead to misinterpretation of CBC data. Current Interpretive Data was last revised on 2017. Blood 12/25/2024 10:4 2 AM CDT 12/25/2024 1:45 PM CDT Caridad Burdick MD LAB BLOOD ORDERABLES Final Result [facility] ([place]) 1 [facility] [place] [address] * Thyroid Function [place] (12/25/2024 10:42 AM CDT) TSH 0.94 0.30 - 4.20 mcIUnit/mL Blood 12/25/2024 10:4 2 AM CDT 12/25/2024 1:45 PM CDT Caridad Burdick MD LAB BLOOD ORDERABLES Final Result Performing Organization Address [facility] Co de Phone Number [facility] [place] ([place]) 1 [facility] [place] [address] * CBC with auto differential (12/25/2024 10:42 AM CDT) WBC 6.78 3.80 - 9.90 K/cumm Hgb 12.7 11.9 - 15.5 g/dL [facility] ([place]) Hct 37.0 35.6 - 45.5 % [facility] ([place]) Plt 326 150 - 400 K/cumm [facility] ([place]) MPV 10.9 9.1 - 12.3 fL [facility] ([place]) RBC 4.22 3.90 - 5.20 M/cumm [facility] ([place]) MCV 87.7 81.3 - 96.4 fL [facility] ([place]) MCH 30.1 27.1 - 33.3 pg [facility] ([place]) MCHC 34.3 32.3 - 35.7 g/dL [facility] ([place]) RDW CV 12.8 11.1 - 14.9 % [facility] ([place]) RDW SD 40.9 35.7 - 48.1 fL [facility] ([place]) NRBC abs 0.00 0.00 - 0.01 K/cumm [facility] ([place]) Blood 12/25/2024 10:4 2 AM CDT 12/25/2024 1:45 PM CDT Caridad Burdick MD LAB BLOOD ORDERABLES Final Result Performing Organization Address [facility] de Phone Number [facility] ([place]) [address] [place] [address] * (ABNORMAL) Hemoglobin A1c (12/25/2024 10:42 AM CDT) Hgb A1C 5.7(H) 4.0 - 5.6 % Estimated Average Glucose 117 mg/dL [facility] ([place]) Comment: The ADA recommends reporting an estimated Average Glucose (eAG) with all Hemoglobin A1c results using the equation derived from a study of 507 normal and diabetic adults. Minority populations were underrepresented and children were not included. (Diabetes Care 31:9091-4032, 2008). The eAG is not equivalent to a fasting glucose. Blood 12/25/2024 10:4 2 AM CDT 12/25/2024 1:45 PM CDT Caridad Burdick MD LAB BLOOD ORDERABLES Final Result Performing Organization Address [facility] de Phone Number [facility] ([place]) [address] [place] [address] * (ABNORMAL) Lipid panel (12/25/2024 10:42 AM CDT) Cholesterol 228(H) 30 - 199 mg/dL Comment: Interpretive Data Ages < or = 19 years Acceptable: <170 mg/dL Borderline high: 170-199 mg/dL High: >or= 200 mg/dL Ages > or = 20 years Desirable: <200 mg/dL Borderline high: 200-239 mg/dL High: >or= 240 mg/dL Literature References: 1. Expert Panel on Integrated Guidelines for Cardiovascular Health and Risk Reduction in Children and Adolescents. Pediatrics 2011;128:S213 2. NCEP Expert Panel. Circulation 2004;110:227 Current Interpretive Data was last revised on 2018. Triglycerides 126 <=149 mg/dL [facility] ([place]) Comment: Interpretive Data Ages < or = 9 years Acceptable: <75 mg/dL Borderline high: 75-99 mg/dL High: >or= 100 mg/dL Ages 10 to 20 years Acceptable: <90 mg/dL Borderline high: 90-129 mg/dL High: >or= 130 mg/dL Ages > or = 20 years Desirable: <150 mg/dL Borderline high: 150-199 mg/dL High: 200-499 mg/dL Very high: >or= 499 mg/dL Literature References: 1. Expert Panel on Integrated Guidelines for Cardiovascular Health and Risk Reduction in Children and Adolescents. Pediatrics 2011;128:S213 2. NCEP Expert Panel. Circulation 2004;110:227 Current Interpretive Data was last revised on 2018. HDL 51 >=40 mg/dL [facility] ([place]) Comment: Interpretive Data Ages < or = 19 years Acceptable: >45 mg/dL Borderline low: 40-45 mg/dL Low: <40 mg/dL Ages > or = 20 years Desirable: >or= 60 mg/dL Low: <40 mg/dL Literature References: 1. Expert Panel on Integrated Guidelines for Cardiovascular Health and Risk Reduction in Children and Adolescents. Pediatrics 2011;128:S213 2. NCEP Expert Panel. Circulation 2004;110:227 Current Interpretive Data was last revised on 2018. LDL, calculated 154(H) <=129 mg/dL [facility] ([place]) Comment: Interpretive Data Ages < or = 19 years Acceptable: <110 mg/dL Borderline high: 110-129 mg/dL High: >or= 130 mg/dL Ages > or = 20 years Optimal: <100 mg/dL Near optimal: 100-129 mg/dL Borderline high: 130-159 mg/dL High: >160 mg/dL Calculated using the [place] LDL-C estimating equation. This equation was implemented on 2024. Prior to this date LDL-C was estimated using the Friedewald equation. Literature References: 1. Expert Panel on Integrated Guidelines for Cardiovascular Health and Risk Reduction in Children and Adolescents. Pediatrics 2011;128:S213 2. NCEP Expert Panel. Circulation 2004;110:227 3. Jaylen M et al. MAX Cardiol. 2020 October 23;5(5):540-548. doi: 10.1001/jamacardio.2020.0013 Current Interpretive Data was last revised on 2024. Non-HDL Cholesterol 177 mg/dL [facility] ([place]) Comment: Interpretive Data Ages < or = 19 years Acceptable: <120 mg/dL Borderline high: 120-144 mg/dL High: >145 mg/dL Ages > or = 20 years When triglycerides are >200 mg/dL, Non-HDL cholesterol is a secondary target of therapy with treatment goals that are 30 mg/dL greater than the LDL cholesterol target. Literature References: 1. Expert Panel on Integrated Guidelines for Cardiovascular Health and Risk Reduction in Children and Adolescents. Pediatrics 2011;128:S213 2. NCEP Expert Panel. Circulation 2004;110:227 Current Interpretive Data was last revised on 2018. Chol/HDL ratio 4 [facility] ([place]) Blood 12/25/2024 10:4 2 AM CDT 12/25/2024 1:45 PM CDT Caridad Burdick MD LAB BLOOD ORDERABLES Final Result [facility] ([place]) 1 [facility] Department [place] [address] * (ABNORMAL) Comprehensive metabolic panel (12/25/2024 10:42 AM CDT) Sodium 135 135 - 145 mmol/L Potassium, pl 3.8 3.3 - 4.9 mmol/L [facility] ([place]) Chloride 99 97 - 110 mmol/L [facility] ([place]) CO2 21(L) 22 - 32 mmol/L [facility] ([place]) Anion gap 15 2 - 15 mmol/L [facility] ([place]) BUN 9 6 - 25 mg/dL [facility] ([place]) Creatinine 0.79 0.60 - 1.10 mg/dL [facility] ([place]) Glucose 100 70 - 199 mg/dL [facility] ([place]) Comment: Interpretive Data Fasting glucose >/= 126 mg/dl is diagnostic for diabetes. Fasting is defined as no caloric intake for at least 8 hours. Fasting glucose between 100 mg/dl to 125 mg/dl is diagnostic of prediabetes. In a patient with classic symptoms of hyperglycemia or hyperglycemic crisis, a random glucose >/= 200 mg/dl is diagnostic for diabetes. In the absence of unequivocal hyperglycemia, results should be confirmed by repeat testing. The classification and Diagnosis of Diabetes Diabetes Care 202; 46: S19-S40. Current interpretive data was last revised 2022. Calcium 9.7 8.5 - 10.3 mg/dL [facility] ([place]) Bilirubin, total 0.6 0.1 - 1.2 mg/dL [facility] ([place]) Protein, pl 7.7 6.5 - 8.5 g/dL [facility] ([place]) Albumin 4.6 3.5 - 5.0 g/dL [facility] ([place]) Alk phos 81 40 - 130 Units/L [facility] ([place]) ALT 20 7 - 45 Units/L [facility] ([place]) AST 28 10 - 45 Units/L [facility] ([place]) Blood 12/25/2024 10:4 2 AM CDT 12/25/2024 1:45 PM CDT Caridad Burdick MD LAB BLOOD ORDERABLES Final Result [facility] ([place]) 1 [facility] Department [place] [address] * Hepatitis C antibody (12/14/2021 3:51 PM CDT) Hep C Ab Nonreactive Nonreactive [facility] ([place]) Comment: Interpretive Data Nonreactive: Antibodies to HCV not detected. Does NOT exclude the possibility of recent exposure to HCV. Equivocal: Equivocal for HCV antibodies. Supplemental molecular testing will be automatically performed to determine infection status in accordance with current CDC screening recommendations. Reactive: Positive for HCV antibodies. This may represent current or past HCV infection. Supplemental molecular testing will be automatically performed to determine current infection status in accordance with current CDC screening recommendations. Interpretive data was last revised on 2019. Testing performed by: [facility], [address] [place] [address], [place]., [address] Blood 12/14/2021 3:51 PM CDT 12/15/2021 9:06 AM CDT Swetha Brown [facility] MICROBIOLOGY - GENERAL ORD ERABLES Edited Result - Final [facility] ([place]) 1 [facility] Department [place] [address] * PAP SMEAR WITH HPV (04/25/2017) HM Pap smear Unknown Historical Provider MD HEALTH MAINTENANCE Final Result from Last 3 Months or Most Recently Relevant to Health Maintenance [place] [employer] Advance Directives For more information, please contact: [phone] * Full Code (Latest Code Status on File) Date Activated Date Inactivated Comments 06/21/2021 2:45 PM 06/21/2021 8:57 PM Care Teams Legal Research Analyst Relationship Specialty Start Date End Date Caridad Burdick MD [address] [place] [address] [place] [address] PCP - General Family Medicine 11/01/23 Derick Bergman MD PhD [address] [facility] NEUROLOGY MULTIPLE SCLEROSIS, [address] [place] [address] PCP - Home Infusion Attending Neurology 11/20/24 Derick Bergman MD PhD [address] [place] [address] Referring Physician Neurology 05/25/21 Herman Ann MD [address] [place] [address] Consulting Physician Obstetrics and Gynecology 05/25/21 Andrew Mckeon Jr., MD [address] [place] [address] Surgeon Orthopedic Surgery 01/05/22 Lorrie Mace MD [address] [facility] [address] [place] [address] Resident General Surgery 01/05/22 Miguel Ace, [facility] Pharmacist Pharmacy 11/14/24 Tanna Moody, [facility] 11/16/24 [place] [address] [facility] [address] [place] [address] Consulting Physician Psychiatry 12/25/24
--- OUTSIDE RECORDS SUMMARY | 2025-02-21 09:16 | XMS_ITS ---
Author Organization [facility] Address [address] [place] [address] Care Team Providers Care Glass Or Mirror Inspector Name Role Phone Derick Bergman MD PhD Unavailable [phone] Herman Ann MD Unavailable [phone] Linda Herndon MD, Andrew Talley Unavailable [phone] Lorrie Mace MD Unavailable [phone] Caridad Burdick MD Primary Care Provide r Miguel Ace [facility] Unavailable Unavaila Tanna Acosta RN Unavailable Unavailable Derick Bergman MD PhD Unavailable [phone] Sharif Bragg MD Unavailable [phone] Active Problems Problem Noted Date Diagnosed Date Gastroesophageal reflux disease 11/01/2023 Encounter for wellness examination 10/31/2023 Assessment & Plan (12/25/2024 10:24 AM CDT): Labs pending Pap smear: follows with ob F/u in 1 year for annual Assessment & Plan (05/20/2024 4:06 PM SCIENCE TECHNICIANS): Recent cbc and cmp reviewed Ordered lipid, [...] CDT): Assessment & Plan (08/25/2024 3:31 PM SCIENCE TECHNICIANS): Chronic, She was counseled on the importance of maintaining a healthy weight and the risks of obesity. Weight loss recommended. Encourage 150min/ week of exercise Encourage 1500 calories in a day for weight loss Insurance wont cover weight loss injections unless she is prediabetic F/u in 3 months for monitoring Assessment & Plan (05/26/2024 5:36 AM SCIENCE TECHNICIANS): Chronic, worsening She was counseled on the importance of maintaining a healthy weight and the risks of obesity. Weight loss recommended. Encourage 150min/ week of exercise Encourage 1500 calories in a day for weight loss Start semaglutide, rx sent She understands the risk of the medication F/u in 3 months for monitoring Assessment & Plan (05/02/2023 8:45 AM SCIENCE TECHNICIANS): Interested in being referred to bariatric surgery. Referral was placed Moderate episode of recurrent major depressive d isorder 01/09/2023 Assessment & Plan (12/25/2024 10:24 AM CDT): Continue following with psych for management Assessment & Plan (05/20/2024 4:03 PM SCIENCE TECHNICIANS): Continue following with psych for management Assessment [...] 08/01/2021 Assessment & Plan (08/01/2021 3:54 PM SCIENCE TECHNICIANS): Avoid ear cleaning techniques Avoid water to ears Lotrisone cream to outer portion of ear canal of both ears twice daily for two weeks then as needed COVID-19 06/03/2020 Assessment & Plan (07/11/2024 11:51 AM SCIENCE TECHNICIANS): New concern She has taken paxlovid before [...] ordered Assessment & Plan (05/02/2023 8:43 AM SCIENCE TECHNICIANS): Lipid abnormalities are stable. Pharmacotherapy is not order. Has been diet controlled. Lipids will be reassessed in 6 months. Assessment & Plan (10/29/2022 12:59 PM CDT): Lipid abnormalities are stable, reviewed previous lipid levels in [facility]. Pharmacotherapy as ordered. Order for lipid panel was given today to be obtained. Pt voiced understanding of lab drawn and continuation of current medication regimen. Assessment & Plan (07/20/2020 7:40 PM SCIENCE TECHNICIANS): Orders for labs. Pt will get done [...] hypertension. Assessment & Plan (08/25/2024 3:31 PM SCIENCE TECHNICIANS): Bp in the office today BP Readings from Last 1 Encounters: 08/25/24 114/64 Continue current regimen of hctz 12.5mg daily losartan 100mg daily Recommend DASH diet, heart-healthy lifestyle, exercise. Discussed the risks of hypertension. F/u in 3 months Assessment & Plan (05/20/2024 4:02 PM SCIENCE TECHNICIANS): Bp in the office today BP Readings [...] months Assessment & Plan (05/02/2023 8:42 AM SCIENCE TECHNICIANS): Blood pressure is borderline today. I asked [...] management Reviewed labs from other providers in [facility] and they are up to date. Renewed medications. Assessment & Plan (07/20/2020 7:32 PM SCIENCE TECHNICIANS): Stable/ Improved. Blood pressure is adequately controlled [...] 05/30/2017 Assessment & Plan (05/02/2023 8:43 AM SCIENCE TECHNICIANS): This is managed by Psychiatry. Assessment & Plan (10/29/2022 1:04 PM CDT): Stable on current medication. Continue venlafaxine as ordered. May follow up in 6 months History of tobacco use 03/13/2017 Assessment & Plan (08/28/2022 1:44 PM SCIENCE TECHNICIANS): - quit smoking in February 2022 - [...] SmokefreeTXT or calling a quitline. Using the Vioozer yoni for tips and inspiration to help [...] improvement Assessment & Plan (07/20/2020 7:38 PM SCIENCE TECHNICIANS): Could be due to change in body wash vs. Eczema flair. Started prednisone 20mg , 2 tablets x 5 days . 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 Other Current Plans OCRELIZUMAB - (OCREVUS) INFUSION (INITIAL DOSES)* Plan Start Date:02/02/2022 Plan Provider:Derick Bergman MD PhD Linked Problems Multiple sclerosis (HCC) Treatment Medications No medications scheduled. Past Treatment and Therapy Plans Resolved Problems Problem Noted Date Diagnosed Date [...] 10/29/2022 Assessment & Plan (08/01/2021 10:15 PM SCIENCE TECHNICIANS): Avoid ear cleaning techniques Avoid water to ears Lotrisone cream to outer portion of ear canal of both ears twice daily for two weeks then as needed OME (otitis media with effusion), left 05/29/2021 10/29/2022 Assessment & Plan (05/29/2021 4:20 PM SCIENCE TECHNICIANS): Will try a round of antibiotics due to decreased hearing and fluid. I told her in hearing does not return, then we will refer her to audiology or ent. Cellulitis of left external ear 05/04/2021 10/29/2022 Assessment & Plan (05/04/2021 10:11 AM SCIENCE TECHNICIANS): Starting to improve on its own. Mild cellulitis. Will treat with mupirocin topically twice a day for 5-7 days. 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 - chronic condition, not at goal - worse - BMI Follow-up includes: nutrition counseling, exercise counseling and education Assessment & Plan (05/04/2021 10:12 AM SCIENCE TECHNICIANS): Refer to editor. Also gave Information on chip Vertigo 09/01/2020 10/29/2022 Assessment & Plan (09/01/2020 1:56 PM SCIENCE TECHNICIANS): With nausea. Differential includes viral syndrome like [...] Notify the doctor or go to a environmental permitting specialist like an Supervisor Silvering Department or Opthalmologist if develop significant pain, light sensitivity or vision loss. Bronchitis 03/13/2017 11/26/2019 Assessment & Plan (06/03/2019 2:58 PM SCIENCE TECHNICIANS): Rapid flu swab in office was negative. [...]
--- OUTSIDE RECORDS SUMMARY | 2025-02-21 09:16 | XMS_ITS | Encounter Summary ---
Author Organization [facility] Healthcare Address [address] [place] [address] Care Team Providers Care Physician Vice President Name Role Phone Derick Bergman MD PhD Unavailable [phone] Herman Ann MD Unavailable [phone] Linda Herndon MD, Andrew Talley Unavailable [phone] Lorrie Mace MD Unavailable [phone] Caridad Burdick MD Primary Care Provide r Miguel Ace [facility] Unavailable UnavailTanna Field RN Unavailable Unavailable Derick Bergman MD PhD Unavailable [phone] Sharif Bragg MD Unavailable [phone] Encounter Details Date Type Department Care Team (Late st Contact Info) Description 12/25/2024 Results Follow-Up [facility] Primary Care at [address] [place] [address] Caridad Burdick MD [address] [place] [address] [address] [place] [address] Hemoglobin A1c, Thyroid Function [place], Lipid panel, Additional followed-up results: 4 Social History Tobacco Use Types Packs/Day Years Used Date Smoking Tobacco: Former Cigarettes 0.5 22.7 2 000 - 03/25/2022 Passive Smoke Exposure: Current Smokeless Tobacco: Never Comments:Smoking History Pac ks/day: 10 Cigarettes Alcohol Use Standard Drinks/Week Comments [...] making you feel afraid or unsafe? 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 Gender Identity Not on file Sexual Orientation Not on file documented as of this encounter Plan of Treatment Not on file documented as of this encounter Visit Diagnoses Not on filedocumented in this encounter Care Teams Physician Vice President Relationship Specialty Start Date End Date Caridad Burdick MD [address] [place] [address] [address] PCP - General Family Medicine 11/01/23 Derick Bergman MD PhD [address] [facility]UR[facility] MULTIPLE SCLEROSIS, [address] [place] [address] PCP - Home Infusion Attending Neurology 11/20/24 Derick Bergman MD PhD [address] [place] [address] Referring Physician Neurology 05/25/21 Herman Ann MD [address] [place] [address] Consulting Physician Obstetrics and Gynecology 05/25/21 Andrew Mckeon Jr., MD [address] [place] [address] Surgeon Orthopedic Surgery 01/05/22 Lorrie Mace MD [address] [place] [address] Resident General Surgery 01/05/22 Miguel Ace, [facility] Pharmacist Pharmacy 11/14/24 Tanna Moody, RN Home Infusion Nursing 11/16/24 [place] [address] [facility] [address] [place] [address] Consulting Physician Psychiatry 12/25/24 documented as of this encounter
--- OUTSIDE RECORDS SUMMARY | 2025-02-21 09:16 | XMS_ITS | Encounter Summary ---
Author Organization [facility] Healthcare Address [address] [place] [address] Care Team Providers Care Acid Polymerization Operator Name Role Phone Derick Bergman MD PhD Unavailable [phone] Herman Ann MD Unavailable [phone] Linda Herndon MD, Andrew Talley Unavailable [phone] Lorrie Mace MD Unavailable [phone] Caridad Burdick MD Primary Care Provide r Miguel Ace [facility] Unavailable UnavailTanna Field RN Unavailable Unavailable Derick Bergman MD PhD Unavailable [phone] Sharif Bragg MD Unavailable [phone] Encounter Details Date Type Department Care Team (Late st Contact Info) Description 02/11/2025 Home Infusion [facility] Home Infusion Therapy [address] [place] [address] Miguel Ace, [facility] Social History Tobacco Use Types Packs/Day Years [...] on file Legal Sex 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 PATTERNMAKER Gender Identity Not on file Sexual Orientation Not on file documented as of this encounter Plan of Treatment Not on file documented as of this encounter Visit Diagnoses Not on filedocumented in this encounter Care Teams Acid Polymerization Operator Relationship Specialty Start Date End Date Caridad Burdick MD [address] [facility] [address] [place] [address] [place] [address] PCP - General Family Medicine 11/01/23 Derick Bergman MD PhD [address] [facility] NEUR[facility]Y MULTIPLE SCLEROSIS, [address] [place] [address] PCP - Home Infusion Attending Neurology 11/20/24 Derick Bergman MD PhD [address] [place] [address] Referring Physician Neurology 05/25/21 Herman Ann MD [address] [place] [address] Consulting Physician Obstetrics and Gynecology 05/25/21 Andrew Mckeon Jr., MD [address] [place] [address] Surgeon Orthopedic Surgery 01/05/22 Lorrie Mace MD [address] [facility] [address] [place] [address] Resident General Surgery 01/05/22 Miguel Ace, [facility] Pharmacist Pharmacy 11/14/24 Tanna Moody, [facility] Home Infusion Nursing 11/16/24 [place] [address] [facility] [address] [place] [address] Consulting Physician Psychiatry 12/25/24 documented as of this encounter
--- OUTSIDE RECORDS SUMMARY | 2025-02-21 09:16 | XMS_ITS ---
Author Organization [facility] Address [address] [place] [address] Care Team Providers Care Laborer General Name Role Phone Derick Bergman MD PhD Unavailable [phone] Herman Ann MD Unavailable [phone] Linda Herndon MD, Andrew Talley Unavailable [phone] Lorrie Mace MD Unavailable [phone] Caridad Burdick MD Primary Care Provide r Miguel Ace [facility] Unavailable UnavailTanna Field RN Unavailable Unavailable Derick Bergman MD PhD Unavailable [phone] Sharif Bragg MD Unavailable [phone] Home Infusion Status:Enrolled (Active) Start date:10/31/2024 Enrollment date:10/31/2024 Related service episodes:[facility] - OCREVUS 600 mg IV Every 6 Months (Active) Overview Cutover complete Nina Toledo 2024 3:46 PM Case Team Name Relationship Phone Tanna Moody RN(Responsible Staff) Home Infu refugio Nursing Continued Care and Services Coordination
--- OUTSIDE RECORDS SUMMARY | 2025-02-21 09:16 | XMS_ITS ---
Author Organization [facility] Address [address] [place] [address] Care Team Providers Care Financial Examiner Name Role Phone Derick Bergman MD PhD Unavailable [phone] Herman Ann MD Unavailable [phone] Linda Herndon MD, Andrew Talley Unavailable [phone] Lorrie Mace MD Unavailable [phone] Caridad Burdick MD Primary Care Provide r Miguel Ace [facility] Unavailable UnavailTanna Field RN Unavailable Unavailable Derick Bergman MD PhD Unavailable Shairf Bragg MD Unavailable [phone] [facility] - OCREVUS 600 mg IV Every 6 Months Status:Enrolled (Active) Start date:10/31/2024 Enrollment date:10/31/2024 Linked medications:ocrelizumab (Active) Related program episode:Home Infusion (Active) Overview Cutover complete Case Team Name Relationship Phone Tanna Moody RN Home Infusion Nursing Miguel Ace [facility](Responsible Staff) Pharma cist Continued Care and Services Coordination This section includes services coordinated for [facility] - OCREVUS 600 mg IV Every 6Months. Home Medical Care Name Services Phone [facility] Home Infusion Therapy Home Infusion and Inje ction
[2025-02-21 09:19] VITALS: BP 136/81; PULSE 70; RESP 16; TEMP 36.6; O2SAT 98
--- NOTE | 2025-02-21 09:24 | ED.EAR ---
HPI - Ear Problem General Chief complaint: Ear Stated complaint: ear pain Source: patient Mode of arrival: ambulatory Limitations: no limitations History of Present Illness HPI Narrative: 39 y/o female presented for c/o right ear x5 days.Endorses decreased hearing, and tender to touch. Reports history of eczema or psoriasis to the outer ears and has not been taking the med for it. Denies ear drainage, tinnitus, dizziness, nasal congestion, n/v/d/f/c. Using left over ciprodex drops without improvement. Taking Tylenol and ibuprofen. Treated for swimmers ear 11/2024. MD Complaint: ear pain Related Data Home Medications ?Medication ?Instructions ?Recorded ?Confirmed ?Last Taken ?Type gabapentin 300 mg capsule 300 mg PO TID 03/19/20 03/12/24 Unknown History hydrochlorothiazide 12.5 mg tablet 12.5 mg PO DAILY 03/19/20 03/12/24 Unknown History omeprazole 40 mg capsule,delayed 40 mg PO DAILY 03/19/20 03/12/24 Unknown History release venlafaxine 75 mg tablet,extended 75 mg PO DAILY 03/19/20 02/21/25 Unknown History release 24 hr ropinirole 1 mg tablet 1 mg PO DAILY 01/23/22 02/21/25 Unknown History tizanidine 4 mg tablet 4 mg PO QID PRN Muscle Spasm 04/27/23 03/12/24 Unknown History trazodone 50 mg tablet 50 mg PO DAILY 01/04/24 03/12/24 Unknown History cholecalciferol (vitamin D3) 50 50 mcg PO DAILY 03/12/24 03/12/24 Unknown History mcg (2,000 unit) tablet ocrelizumab 30 mg/mL intravenous 600 mg IV [id number] 03/12/24 03/12/24 Unknown History solution (Ocrevus) vitamin B complex-vitamin B12 1 drp sublingual DAILY 03/12/24 03/12/24 Unknown History 1,200 mcg/mL sublingual drops alprazolam 0.5 mg tablet mg 07/22/24 Unknown History losartan 100 mg tablet mg 07/22/24 Unknown History ropinirole 3 mg tablet mg 07/22/24 Unknown History venlafaxine 150 mg mg PO 07/22/24 Unknown History capsule,extended release 24 hr valacyclovir 500 mg tablet mg 02/21/25 Unknown History Allergies Allergy/AdvReac Type Severity Reaction Status Date / Time cyclobenzaprine Allergy Severe AIRWAY Verified 02/21/25 09:21 CLOSES OFF Review of Systems Review of Systems: CONSTITUTIONAL: Denies malaise, chills, or fever. EYES: Denies visual changes, redness, or discharge. ENT: Denies rhinorrhea, congestion, sinus pain, and sore throat. Reports ear pain CARDIOVASCULAR: Denies chest pain, palpitations, or edema. RESPIRATORY: Denies cough or dyspnea. GASTROINTESTINAL: Denies abdominal pain, nausea, vomiting, diarrhea SKIN: Denies rash or itching. MUSCULOSKELETAL: Denies myalgia. NEUROLOGIC: Denies headache. All systems reviewed & are unremarkable except as noted in HPI and below PMFSH Comments At time of signature, agree with nursing past medical, surgical, social and family history. There is no relevant family history pertinent to the presenting complaint Exam Narrative: GENERAL: Well-appearing EYES: PERRLA, conjunctivae clear ENT: Nares clear. Mucous membranes moist. Right TM erythematous, bulging and intact; canal with mild swelling, tender, erythematous, no drainage, right tragal tenderness.Left TM normal light reflex. Oropharynx not erythematous without lesions. no drooling, no hoarseness, no trismus, uvula midline. NECK: Supple. No lymphadenopathy CHEST: Clear to auscultation, breath sounds equal. HEART: Regular rate and rhythm. No murmur heard. SKIN: Warm, dry, no rash. NEURO: Alert and oriented x3. PSYCH: Normal mood and affect Course Course Emergency Course: Patient is aware of diagnosis, understands and agrees to treatment plan. Anticipatory guidance given. Patient agrees to follow-up as directed and is aware of reasons to seek care at the emergency department. Portions of this record may have been created with voice recognition software Level of Care: Express Care Visit Vital Signs Vital signs: Vital Signs Temperature 97.9 F 02/21/25 09:19 Pulse Rate 70 02/21/25 09:19 Respiratory Rate 16 02/21/25 09:19 Blood Pressure 136/81 02/21/25 09:19 Pulse Oximetry 98 02/21/25 09:19 Oxygen Delivery Room Air 02/21/25 09:19 Temperature 97.9 F 02/21/25 09:19 Pulse Rate 70 02/21/25 09:19 Respiratory Rate 16 02/21/25 09:19 Blood Pressure 136/81 02/21/25 09:19 Pulse Oximetry 98 02/21/25 09:19 Oxygen Delivery Room Air 02/21/25 09:19 Reviewed Medical Decision Making MDM Narrative Medical decision making narrative: Discussed physical exam findings c/w right AOM and OE. Pt has Ciprodex already from previous infection she will continue, add Rx augmentin. v/u Advised supportive measures and signs/symptoms to go to the ER. Patient is appropriate for outpatient treatment and follow-up. Differential Diagnosis Differential Diagnosis: Coronavirus, strep pharyngitis, allergic rhinitis, upper respiratory tract infection, sinusitis, rhinosinusitis, nasopharyngitis, viral pharyngitis, otitis media, otitis externa, eustachian tube dysfunction, foreign body, cerumen impaction. Vital Signs Vital Signs: Vital Signs Temperature 97.9 F 02/21/25 09:19 Pulse Rate 70 02/21/25 09:19 Respiratory Rate 16 02/21/25 09:19 Blood Pressure 136/81 02/21/25 09:19 Pulse Oximetry 98 02/21/25 09:19 Oxygen Delivery Room Air 02/21/25 09:19 Temperature 97.9 F 02/21/25 09:19 Pulse Rate 70 02/21/25 09:19 Respiratory Rate 16 02/21/25 09:19 Blood Pressure 136/81 02/21/25 09:19 Pulse Oximetry 98 02/21/25 09:19 Oxygen Delivery Room Air 02/21/25 09:19 Discharge Plan Discharge Clinical Impression: Otitis externa, Otitis media Patient Disposition: Home Condition: Stable Instructions: Antibiotic Form, Ear Infection (ED) Additional Instructions: Take antibiotics as directed. continue to use the previously prescribed Ciprodex drops for swimmer's ear into the right ear Tylenol and ibuprofen every 8 hours as needed to reduce fever, pain Please schedule a follow-up visit with your personal physician If your symptoms persist, change or worsen significantly, go to the emergency department for further evaluation. Patient Language: Niuean Prescriptions: New amoxicillin-pot clavulanate 875-125 mg tablet 1 tablet PO Q12H 7 Days Qty: 14 0RF No Action omeprazole 40 mg Capsule,Delayed Release(Dr/Ec) 40 mg PO DAILY venlafaxine 75 mg Tablet Extended Release 24hr 75 mg PO DAILY gabapentin 300 mg Capsule 300 mg PO TID hydrochlorothiazide 12.5 mg Tablet 12.5 mg PO DAILY ropinirole 1 mg tablet 1 mg PO DAILY trazodone 50 mg tablet 50 mg PO DAILY valacyclovir 500 mg tablet tizanidine 4 mg tablet 4 mg PO QID PRN (Reason: Muscle Spasm) cholecalciferol (vitamin D3) 50 mcg (2,000 unit) Tablet 50 mcg PO DAILY vitamin B complex-vit B12 1,200 mcg/mL Drops 1 drp SUBLINGUAL DAILY Ocrevus 30 mg/mL Solution 600 mg IV [id number] ropinirole 3 mg tablet venlafaxine 150 mg capsule,extended release 24hr PO alprazolam 0.5 mg tablet losartan 100 mg tablet Follow-up/Referrals: Gennaro,MD Caridad [Primary Care Provider, Unknown]
== END 2025-02-21 09:34 | disposition home or self-care (01) ==
PROVIDERS: Emergency Provider Nurse Practitioner Family; PCP Family Medicine
DX: H60.91 Unspecified otitis externa, right ear (principal); H66.91 Otitis media, unspecified, right ear; G35 Multiple sclerosis; G25.81 Restless legs syndrome; I10 Essential (primary) hypertension; K21.9 Gastro-esophageal reflux disease without esophagitis; F41.9 Anxiety disorder, unspecified; F32.A Depression, unspecified; Z85.828 Personal history of other malignant neoplasm of skin
CPT/HCPCS: 99213; G0463

== ENCOUNTER 2025-04-01 18:15 | Emergency (ER) | payer BC, SELFPAY ==
[2025-04-01 18:26] VITALS: BP 149/90; PULSE 63; RESP 16; TEMP 36.4; O2SAT 100
--- NOTE | 2025-04-01 18:32 | ED.EAR ---
HPI - Ear Problem General Chief complaint: Ear Stated complaint: Ear Pain Time Seen by Provider: 04/01/25 18:38 Source: patient, RN notes reviewed and old records reviewed Mode of arrival: ambulatory Limitations: no limitations History of Present Illness HPI Narrative: 39 year old female presents to [facility] care with complaints of left ear pain and decreased hearing for the past week. Patient states that she had some left over Cipro ear drops at home which she used with no improvement in her symptoms. Patient reports no cough or any congestion, admits to some sinus drainage today. Patient reports that sh has been taking OTC, Tylenol and Ibuprofen for her discomfort and also daily MD Ophelia Complaint: ear pain and decreased hearing Location: left ear Duration: constant Severity: moderate Discharge from ear: Reports no Treatment prior to arrival: eardrops (left over Cipro ear drops), oral analgesic and other (Zyrtec) Related Data Home Medications ?Medication ?Instructions ?Recorded ?Confirmed ?Last Taken ?Type gabapentin 300 mg capsule 300 mg PO TID 03/19/20 03/12/24 Unknown History hydrochlorothiazide 12.5 mg tablet 12.5 mg PO DAILY 03/19/20 03/12/24 Unknown History omeprazole 40 mg capsule,delayed 40 mg PO DAILY 03/19/20 03/12/24 Unknown History release venlafaxine 75 mg tablet,extended 75 mg PO DAILY 03/19/20 02/21/25 Unknown History release 24 hr ropinirole 1 mg tablet 1 mg PO DAILY 01/23/22 02/21/25 Unknown History tizanidine 4 mg tablet 4 mg PO QID PRN Muscle Spasm 04/27/23 03/12/24 Unknown History trazodone 50 mg tablet 50 mg PO DAILY 01/04/24 03/12/24 Unknown History cholecalciferol (vitamin D3) 50 50 mcg PO DAILY 03/12/24 03/12/24 Unknown History mcg (2,000 unit) tablet ocrelizumab 30 mg/mL intravenous 600 mg IV [id number] 03/12/24 03/12/24 Unknown History solution (Ocrevus) vitamin B complex-vitamin B12 1 drp sublingual DAILY 03/12/24 03/12/24 Unknown History 1,200 mcg/mL sublingual drops alprazolam 0.5 mg tablet mg 07/22/24 Unknown History losartan 100 mg tablet mg 07/22/24 Unknown History ropinirole 3 mg tablet mg 07/22/24 Unknown History venlafaxine 150 mg mg PO 07/22/24 Unknown History capsule,extended release 24 hr valacyclovir 500 mg tablet mg 02/21/25 Unknown History Allergies Allergy/AdvReac Type Severity Reaction Status Date / Time cyclobenzaprine Allergy Severe AIRWAY Verified 02/21/25 09:21 CLOSES OFF Review of Systems Review of Systems: CONSTITUTIONAL: Denies malaise, chills, sweats, or fever. EYES: Denies visual changes, redness, or discharge. ENT: Reports rhinorrhea, congestion, no sinus pain,left otalgia and no sore throat. CARDIOVASCULAR: Denies chest pain, palpitations, or edema. RESPIRATORY: Reports no cough.? Denies dyspnea. GASTROINTESTINAL: Denies abdominal pain, nausea, vomiting, diarrhea SKIN: Denies rash or itching. MUSCULOSKELETAL: Denies myalgia. NEUROLOGIC: Denies headache. 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 There is no relevant family history pertinent to the presenting complaint Exam Narrative: GENERAL: Well-appearing, well-nourished, and in no acute distress. HEAD: Normocephalic EYES: PERRLA, conjunctivae clear ENT: Nares clear, turbinates edematous and erythematous, clear discharge. Mucous membranes moist. Left TM red , Right TM pearly lorenzo with dull light reflex bilaterally; no tragal tenderness. Oropharynx erythematous without lesions. Tonsils not enlarged and without exudate, no drooling, no hoarseness, no trismus, uvula midline.post nasal discharge noted NECK: Supple. No lymphadenopathy CHEST: Clear to auscultation, breath sounds equal. No wheezing, rhonchi, rales, or stridor. No respiratory distress, speaks in full sentences. SAO2 100% on room air HEART: Regular rate and rhythm. No murmur heard. SKIN: Warm, dry, no rash. NEURO: Alert and oriented x3. PSYCH: Normal mood and affect Course Course Emergency Course: Patient is aware of diagnosis, understands and agrees to treatment plan.? Anticipatory guidance given.? Patient agrees to follow-up as directed and is aware of reasons to seek care at the emergency department. Portions of this record may have been created with voice recognition software Level of Care: Express Care Visit Vital Signs Vital signs: Vital Signs Temperature 36.4 C 04/01/25 18:26 Pulse Rate 63 04/01/25 18:26 Respiratory Rate 16 04/01/25 18:26 Blood Pressure 149/90 H 04/01/25 18:26 Pulse Oximetry 100 04/01/25 18:26 Oxygen Delivery Room Air 04/01/25 18: Temperature 36.4 C 04/01/25 18: Pulse Rate 63 04/01/25 18:26 Respiratory Rate 16 04/01/25 18:26 Blood Pressure 149/90 H 04/01/25 18:26 Pulse Oximetry 100 04/01/25 18:26 Oxygen Delivery Room Air 04/01/25 18:26 Reviewed Medical Decision Making Differential Diagnosis Differential Diagnosis: URI, otitis media, otitis externa, viral infection, rhinitis Medical Records Medical records reviewed: Yes I reviewed the external patient's medical records. Vital Signs Vital Signs: Vital Signs Temperature 36.4 C 04/01/25 18: Pulse Rate 63 04/01/25 18:26 Respiratory Rate 16 04/01/25 18:26 Blood Pressure 149/90 H 04/01/25 18:26 Pulse Oximetry 100 04/01/25 18:26 Oxygen Delivery Room Air 04/01/25 18:26 Temperature 36.4 C 04/01/25 18: Pulse Rate 63 04/01/25 18:26 Respiratory Rate 16 04/01/25 18:26 Blood Pressure 149/90 H 04/01/25 18:26 Pulse Oximetry 100 04/01/25 18:26 Oxygen Delivery Room Air 04/01/25 18:26 reviewed Critical Care Time Critical Care Time Critical Care Time: No Discharge Plan Discharge Clinical Impression: Otitis media Qualifiers: Otitis media type: serous Chronicity: acute Laterality: left Recurrence: non-recurrent Qualified Code(s): H65.02 - Acute serous otitis media, left ear Patient Disposition: Home Condition: Stable Instructions: Antibiotic Form Additional Instructions: Increase fluids especially juices and water [id number] cough and cold medicine of your choice for your symptoms Zyrtec Claritin or [place] daily Tylenol or ibuprofen for any fever pain per package heat to the face 20-30 minutes 4-6 times a day for pain Salt water gargles, throat lozenges or throat sprays as desired Antibiotic as directed--finished the medication If your symptoms persist, change or worsen significantly before you can contact your personal physician then please, without delay, go to the emergency department for further evaluation. Follow-up with PCP in 7-10 days or sooner if needed Follow up with PCP soon in regards to your blood pressure which is elevated above threshold for referral. Blood pressure above 120/80 may indicate pre-hypertension. Patient Language: Tanzanian Prescriptions: New amoxicillin-pot clavulanate 875-125 mg tablet 1 tablet PO Q12H Qty: 20 0RF Rx Instructions: take with food. take probiotic while taking this medication No Action omeprazole 40 mg Capsule,Delayed Release(Dr/Ec) 40 mg PO DAILY venlafaxine 75 mg Tablet Extended Release 24hr 75 mg PO DAILY gabapentin 300 mg Capsule 300 mg PO TID hydrochlorothiazide 12.5 mg Tablet 12.5 mg PO DAILY ropinirole 1 mg tablet 1 mg PO DAILY trazodone 50 mg tablet 50 mg PO DAILY valacyclovir 500 mg tablet tizanidine 4 mg tablet 4 mg PO QID PRN (Reason: Muscle Spasm) cholecalciferol (vitamin D3) 50 mcg (2,000 unit) Tablet 50 mcg PO DAILY vitamin B complex-vit B12 1,200 mcg/mL Drops 1 drp SUBLINGUAL DAILY Ocrevus 30 mg/mL Solution 600 mg IV [id number] ropinirole 3 mg tablet venlafaxine 150 mg capsule,extended release 24hr PO alprazolam 0.5 mg tablet losartan 100 mg tablet Follow-up/Referrals: Gennaro,MD Caridad [Primary Care Provider, Unknown] Time of Disposition: 18:47 Quality Ada Coma Scale Eyes: Open Verbal: Oriented and Alert Motor: Follows Commands Ada Coma Total Score: 15
== END 2025-04-01 18:51 | disposition home or self-care (01) ==
PROVIDERS: Emergency Provider Registered Nurse; PCP Family Medicine
DX: H65.02 Acute serous otitis media, left ear (principal); I10 Essential (primary) hypertension; G35.D Multiple sclerosis, unspecified; G25.81 Restless legs syndrome; K21.9 Gastro-esophageal reflux disease without esophagitis; F41.9 Anxiety disorder, unspecified; F32.A Depression, unspecified
CPT/HCPCS: 99213; G0463